=== PATIENT | male | born 1995 | race Caucasian/White ===

== ENCOUNTER 2016-03-21 20:30 | Emergency (ER) | payer OTHER ==
[~2016-03-21] VITALS: Ht 175.3 cm; Wt 74.5 kg
[~2016-03-21 20:30] MED LIST: CIPR500T4 PO; HYDR-3498 PO; IBUP-1542 PO; RANI150T9 PO; ZOF8 PO
[2016-03-21 20:35] VITALS: Ht 175.3 cm; Wt 74.5 kg
== END 2016-03-21 23:17 | disposition left against medical advice (07) ==
LOC: FTE 20:30
DX: Z53.21 Procedure and treatment not carried out due to patient leaving prior to being seen by health care provider (principal)

== ENCOUNTER 2016-06-09 23:04 | Emergency (ER) | payer SELFPAY ==
[~2016-06-09] VITALS: Ht 177.8 cm; Wt 98.8 kg
[2016-06-09 23:06] VITALS: Ht 177.8 cm; Wt 98.8 kg
[2016-06-10] MEDS ORDERED: ACET500C5 PO (04:05)
[2016-06-10] MEDS ORDERED: OMEP20CA16 PO (04:05)
[2016-06-10] MEDS ORDERED: ONDA4TAB14 PO (04:05)
== END 2016-06-09 23:28 | disposition left against medical advice (07) ==
LOC: FTE 23:04
DX: Z53.21 Procedure and treatment not carried out due to patient leaving prior to being seen by health care provider (principal)

== ENCOUNTER 2016-06-09 23:57 | Emergency (ER) | payer SELFPAY ==
[~2016-06-09] VITALS: Ht 172.7 cm; Wt 98.0 kg
[2016-06-10 00:03] VITALS: Ht 172.7 cm; Wt 98.0 kg
[2016-06-10] MEDS ORDERED: SOD CHLORIDE 0.9% 1,000 ML IV STA (01:10)
[2016-06-10] MEDS ORDERED: ONDANSETRON 4 MG INJ IV STA (01:10)
[2016-06-10] MEDS ORDERED: morphine 4 MG/ML VIAL IV STA (01:10)
[2016-06-10] MEDS ORDERED: ACETAMINOPHEN 500 MG TAB PO STA (01:10)
[2016-06-10 01:47] LABS: ADD SCAN DIFF NO
--- NOTE | 2016-06-10 01:47 | ERD ---
ER Documentation Chief Complaint Date/Time DATE: 06/10/16 TIME: 01:46 Chief Complaint MID ABD PAIN TODAY HPI 20-year-old male presents to emergency department for complaint of lower abdominal pain started today, fever or nausea vomiting. Patient is complaining of lower abdominal pain sharp pain, 4/10 scale, accompanied with vomiting and fever. Patient denies any blood in the stool. Patient denies any blood in the vomit. Patient denies any diarrhea or constipation. Patient denies any sick contacts. Patient denies any recent travel. Patient denies hematuria or dysuria. Patient did not take any medications to help with symptoms. ROS All systems reviewed and are negative except as per history of present illness. Medications Home Meds Active Scripts Omeprazole* (Omeprazole*) 20 Mg Capsule.dr, 20 MG PO DAILY, #30 Prov:JACEK BLEVINS NP 06/10/16 Acetaminophen* (Tylophen*) 500 Mg Capsule, 1 CAP PO Q6H Y for PAIN AND OR ELEVATED TEMP, #20 CAP Prov:JACEK BLEVINS NP 06/10/16 Ondansetron (Ondansetron Odt) 4 Mg Tab.rapdis, 4 MG PO Q8 Y for NAUSEA AND/OR VOMITING, #30 TAB Prov:JACEK BLEVINS NP 06/10/16 Ibuprofen* (Ibuprofen*) 600 Mg Tablet, 600 MG PO Q6H Y for PAIN, #30 TAB Prov:ALBERTINA SOTELO PA-C 09/09/15 Hydrocodone Bit-Acetaminophen* ([place]*) 5-325 Mg Tab, 1 TAB PO Q6 Y for PAIN, # 15 TAB Prov:ALBERTINA SOTELO PA-C 09/09/15 Ciprofloxacin Hcl* (Ciprofloxacin Hcl*) 500 Mg Tablet, 500 MG PO BID for 7 Days , TAB Prov:KENY HENDRICKS PA-C 09/30/14 Ondansetron Hcl* (Zofran* ODT) 8 mg -ODT Tab.disper, 8 MG PO Q6 Y for NAUSEA AND /OR VOMITING, #10 TAB Prov:KENY HENDRICKS PA-C 09/30/14 Ranitidine Hcl* (Zantac*) 150 Mg Tablet, 150 MG PO BID Y for PAIN, #20 TAB Prov:KENY HENDRICKS PA-C 09/30/14 Allergies Allergies: Coded Allergies: No Known Allergy (Unverified , 09/09/15) PMhx/Soc Medical and Surgical Hx: pt denies Medical Hx, pt denies Surgical Hx History of Surgery: No Anesthesia Reaction: No Hx Neurological Disorder: No Hx Respiratory Disorders: No Hx Cardiac Disorders: No Hx Psychiatric Problems: No Hx Miscellaneous Medical Probl: No Hx Alcohol Use: No Hx Substance Use: No Hx Tobacco Use: No FmHx Family History: No coronary disease, No diabetes, No other Physical Exam Vitals Vital Signs Date Time Temp Pulse Resp B/P Pulse Ox O2 Delivery O2 Flow Rate FiO2 06/10/16 04:05 97.6 66 20 108/61 100 Room Air 06/10/16 00:03 100.4 82 20 142/80 100 Physical Exam GENERAL: The patient is well developed and appropriate for usual state of health, in no apparent distress. CHEST: Clear to auscultation bilaterally. There are no rales, wheezes or rhonchi. HEART: Regular rate and rhythm. No murmurs, clicks, rubs or gallops. No S3 or S4. ABDOMEN: Soft, nontender and nondistended. Good bowel sounds. No rebound or guarding. No gross peritonitis. No gross organomegaly or masses. No Lynch sign or McBurney point tenderness. BACK: No midline or flank tenderness. EXTREMITIES: Equal pulses bilaterally. There is no peripheral clubbing, cyanosis or edema. No focal swelling or erythema. Full range of motion. Grossly neurovascularly intact. NEURO: Alert and oriented. Cranial nerves 2-12 intact. Motor strength in all 4 extremities with 5/5 strength. Sensation grossly intact. Normal speech and gait. SKIN: There is no apparent rash or petechia. The skin is warm and dry. HEMATOLOGIC AND LYMPHATIC: There is no evidence of excessive bruising or lymphedema. No gross cervical, axillary, or inguinal lymphadenopathy. Result Diagram: 06/10/16 0140 06/10/16 0140 Results 24 hrs Laboratory Tests Test 06/10/16 01:30 06/10/16 01:40 Urine Color YELLOW Urine Clarity CLEAR Urine pH 6.0 Urine Specific [place] 1.025 Urine Ketones TRACE Urine Nitrite NEGATIVE Urine Bilirubin 1+ Urine Ictotest NEGATIVE Urine Urobilinogen 0.2 E.U./dL Urine Leukocyte Esterase NEGATIVE Urine Microscopic RBC NONE SEEN/HPF Urine Microscopic WBC NONE SEEN/HPF Urine Squamous Epithelial Cells RARE Urine Mucus FEW Urine Hemoglobin NEGATIVE Urine Glucose NEGATIVE% Urine Total Protein TRACE White Blood Count 16.210^3/ul Red Blood Count 5.2310^6/ul Hemoglobin 15.4g/dl Hematocrit 44.0% Mean Corpuscular Volume 84.1fl Mean Corpuscular Hemoglobin 29.4pg Mean Corpuscular Hemoglobin Concent 35.0g/dl Red Cell Distribution Width 12.8% Platelet Count 55224^3/UL Mean Platelet Volume 11.0fl Neutrophils % 86.9% Lymphocytes % 5.5% Monocytes % 7.0% Eosinophils % 0.1% Basophils % 0.2% Nucleated Red Blood Cells % 0.0/100WBC Neutrophils # 14.110^3/ul Lymphocytes # 0.910^3/ul Monocytes # 1.110^3/ul Eosinophils # 0.010^3/ul Basophils # 0.010^3/ul Nucleated Red Blood Cells # 0.010^3/ul Sodium Level 141mmol/L Potassium Level 3.9mmol/L Chloride Level 102mmol/L Carbon Dioxide Level 26mmol/L Anion Gap 17 Blood Urea Nitrogen 16mg/dl Creatinine 0.83mg/dl Glucose Level 111mg/dl Calcium Level 9.9mg/dl Total Bilirubin 0.9mg/dl Direct Bilirubin 0.00mg/dl Indirect Bilirubin 0.9mg/dl Aspartate Amino Transf (AST/SGOT) 30IU/L Alanine Aminotransferase (ALT/SGPT) 75IU/L Alkaline Phosphatase 104IU/L Total Protein 7.8g/dl Albumin 4.5g/dl Globulin 3.30g/dl Albumin/Globulin Ratio 1.36 Lipase 19U/L Current Medications Medications (Trade) Dose Ordered Sig/Savage Route PRN Reason Start Time Stop Time Status Last Admin Dose Admin Sodium Chloride (NS) 1,000 ml @ 1,000 mls/hr Q1H STAT IV 06/10/16 01:10 06/10/16 02:09 DC 06/10/16 01:34 Morphine Sulfate (morphine) 4 mg ONCE STAT IV 06/10/16 01:10 06/10/16 01:11 DC 06/10/16 01:34 Ondansetron HCl (Zofran Inj) 4 mg ONCE STAT IV 06/10/16 01:10 06/10/16 01:11 DC 06/10/16 01:34 Acetaminophen (Tylenol Tab) 500 mg ONCE STAT PO 06/10/16 01:10 06/10/16 01:11 DC 06/10/16 01:34 Patient was given medication for pain here in emergency department, after treatment, patient verbalized feeling much better. Patient's pain is improved. Patient was given Zofran here in the emergency department. After treatment, patient was able to tolerate po fluids here in the emergency department without any vomiting. There is no signs and symptoms of dehydration. PROCEDURE: CT ABDOMEN/PELVIS WITHOUT CONTRAST CLINICAL INDICATION: 20-year-old male with abdominal pain. TECHNIQUE: The study was performed utilizing a GE [employer] VCT 64-slice CT scanner. Direct axial sections were obtained through the abdomen and pelvis without the use of intravenous contrast material. Sagittal and coronal reformations were obtained. One or more of the following dose reduction techniques were utilized: automated exposure control, adjustment of the mA and/ or kV according to patient's size or use of iterative reconstruction technique. The images were reviewed on a PACS workstation. CTD/vol = 7.6 mGy; Total Exam DLP = 484.4 mGy-cm. COMPARISON: None. FINDINGS: There is trace left basilar subsegmental atelectasis. There is no evidence for significant pleural effusion. The liver has a normal size and contour. There is diffuse decreased density throughout the liver consistent with fatty infiltration without focal areas of abnormal density. No intrahepatic nor extrahepatic biliary ductal dilatation is seen. The gallbladder demonstrates no wall thickening nor pericholecystic fluid. No biliary stones are evident. The pancreas is without areas of abnormal attenuation. The spleen is identified and has a normal size without abnormal density. The adrenal glands are unremarkable. The kidneys are without abnormal density. No hydroureteronephrosis nor nephroureterolithiasis is evident. The urinary bladder contains small volume of urine. There is no evidence for bowel obstruction. The appendix is visualized and is without abnormal thickening or surrounding inflammatory reaction. There is no significant free fluid. The aortoiliac vessels are without aneurysmal dilatation. The osseous structures are intact. IMPRESSION: 1. Diffuse fatty infiltration of the liver. 2. No CT evidence for appendicitis. .Keanu Schwartz MD, MD Date Time Electronically viewed and signed by .Keanu Schwartz MD, on 06/10/2016 02:59 .M/ CC: JACEK BLEVINS BENDER MACHINE OPERATOR Microbiology INFLUENZA A & B BY EIA Final INFLU A&B BY EIA INFLUENZA A NEGATIVE (Ref Range Neg) INFLUENZA B NEGATIVE (Ref Range Neg) Procedures/MDM Medical Decision Making: Patient's abdominal pain and vomiting nonspecific, patient also had a fever, most likely viral in origin. No symptoms of dehydration, patient abdominal pain has improved and resolved after treatment here in emergency department. Patient's fever is controlled. There is low suspicion for abdominal emergencies at this time. Patients abdominal exam is normal at this time. Patients radiology exam does not show any abdominal emergencies at this time. There is low suspicion for appendicitis, cholecystitis , abdominal aortic aneurysms or peritonitis at this time. There is low suspicion for sepsis. Patient appears well and is hemodynamically stable. Disposition: Home. Condition: Stable Prescription Zofran, Tylenol, omeprazole Instructions: Patient is advised to take medications as prescribed. Patient is advised to rest, increase fluid intake and do brat diet for next 1-2 days and progress as tolerated. Patient is advised that if symptoms are worse, severe abdominal pain, uncontrolled vomiting, high fever, severe flank pain, worst signs and symptoms, to return to the emergency department immediately. Otherwise, patient can follow up with primary care doctor in 5-7 days. Departure Diagnosis: Primary Impression: Abdominal pain Abdominal location: lower abdomen, unspecified Qualified Code: R10.30 - Lower abdominal pain Additional Impression: Vomiting Vomiting type: unspecified Vomiting Intractability: unspecified Nausea presence: unspecified Qualified Code: R11.10 - Vomiting, intractability of vomiting not specified, presence of nausea not specified, unspecified vomiting type Condition: Stable Patient Instructions: Abdominal Pain, Vomiting (6Y-Adult) Additional Instructions: Patient is advised to take medications as prescribed. Patient is advised to rest , increase fluid intake and do brat diet for next 1-2 days and progress as tolerated. Patient is advised that if symptoms are worse, severe abdominal pain , uncontrolled vomiting, high fever, severe flank pain, worst signs and symptoms , to return to the emergency department immediately. Otherwise, patient can follow up with primary care doctor in 5-7 days. JACEK BLEVINS NP Jun 10, 2016 01:47
[2016-06-10 01:49] LABS: BASOPHILS % 0.2 % (0.0-2.0); EOSINOPHILS % 0.1 % (0.0-7.0); HEMOGLOBIN 15.4 g/dl (14.0-18.0); LYMPHOCYTES # 0.9 10^3/ul (0.8-2.9); LYMPHOCYTES % 5.5 % (18.0-55.0); MEAN CORPUSCULAR HEMOGLOBIN 29.4 pg (29.0-33.0); MEAN CORPUSCULAR VOLUME 84.1 fl (72.0-104.0); MONOCYTE # 1.1 10^3/ul (0.3-0.9); NEUTROPHIL # 14.1 10^3/ul (1.6-7.5); NEUTROPHILS % 86.9 % (30.0-74.0); PLATELET COUNT 203 10^3/UL (140-415); RED BLOOD COUNT 5.23 10^6/ul (4.70-6.10); RED CELL DISTRIBUTION WIDTH 12.8 % (11.5-14.5); WHITE BLOOD COUNT 16.2 10^3/ul (4.8-10.8)
[2016-06-10 01:51] LABS: ADD UMIC YES; URINE BILIRUBIN (Dip) 1+ (NEGATIVE); URINE BLOOD (Dip) NEGATIVE (NEGATIVE); URINE COLOR YELLOW (YELLOW); URINE GLUCOSE (Dip) NEGATIVE (NEGATIVE); URINE KETONES (Dip) TRACE (NEGATIVE); URINE LEUKOCYTE ESTERASE (Dip) NEGATIVE (NEGATIVE); URINE NITRITE (Dip) NEGATIVE (NEGATIVE); URINE TOTAL PROTEIN (Dip) TRACE (NEGATIVE); URINE UROBILINOGEN (Dip) 0.2 E.U./dL (0.1-1.0)
[2016-06-10 02:02] LABS: ALBUMIN 4.5 g/dl (3.3-4.9)
[2016-06-10 02:03] LABS: POTASSIUM 3.9 mmol/L (3.5-5.1)
[2016-06-10 02:05] LABS: ALBUMIN/GLOBULIN RATIO 1.36; BILIRUBIN,INDIRECT 0.9 mg/dl (0-1.1); BILIRUBIN,TOTAL 0.9 mg/dl (0.2-1.3); CREATININE 0.83 mg/dl (0.61-1.24); TOTAL PROTEIN 7.8 g/dl (6.1-8.1)
[2016-06-10 02:06] LABS: CALCIUM 9.9 mg/dl (8.4-10.2)
[2016-06-10 02:10] LABS: ICTOTEST NEGATIVE (NEGATIVE); MUCUS,URINE FEW; SQUAMOUS EPITHELIAL CELL,UR RARE; URINE RBCS NONE SEEN /HPF (0)
--- NOTE | 2016-06-10 03:00 | RADRPT ---
PROCEDURE: CT ABDOMEN/PELVIS WITHOUT CONTRAST CLINICAL INDICATION: 20-year-old male with abdominal pain. TECHNIQUE: The study was performed utilizing a GE [employer] VCT 64-slice CT scanner. Direct axia l sections were obtained through the abdomen and pelvis without the use of intravenous contrast mate rial. Sagittal and coronal reformations were obtained. One or more of the following dose reduction t echniques were utilized: automated exposure control, adjustment of the mA and/or kV according to pat ient's size or use of iterative reconstruction technique. The images were reviewed on a PACS workst at[employer]. CTD/vol = 7.6 mGy; Total Exam DLP = 484.4 mGy-cm. COMPARISON: None. FINDINGS: There is trace left basilar subsegmental atelectasis. There is no evidence for significant pleural effusion. The liver has a normal size and contour. There is diffuse decreased density throughout t he liver consistent with fatty infiltration without focal areas of abnormal density. No intrahepatic nor extrahepatic biliary ductal dilatation is seen. The gallbladder demonstrates no wall thickening nor pericholecystic fluid. No biliary stones are evident. The pancreas is without areas of abnormal attenuation. The spleen is identified and has a normal size without abnormal density. The adrenal glands are unremarkable. The kidneys are without abnormal density. No hydroureteronephrosis nor neph roureterolithiasis is evident. The urinary bladder contains small volume of urine. There is no evide nce for bowel obstruction. The appendix is visualized and is without abnormal thickening or surroun ding inflammatory reaction. There is no significant free fluid. The aortoiliac vessels are without aneurysmal dilatation. The osseous structures are intact. IMPRESSION: 1. Diffuse fatty infiltration of the liver. 2. No CT evidence for appendicitis. .Keanu Schwartz MD, MD Date Time Electronically viewed and signed by .Keanu Schwartz MD, MD on 06/10/2016 02:59 .M/
[2016-06-10 04:05] VITALS: BP 108/61; PULSE 66; RESP 20; TEMP 97.6
[2016-06-10] MEDS ORDERED: ACET500C5 PO (04:05)
[2016-06-10] MEDS ORDERED: ONDA4TAB14 PO (04:05)
[2016-06-10] MEDS ORDERED: OMEP20CA16 PO (04:05)
== END 2016-06-10 04:10 | disposition home or self-care (01) ==
LOC: FTE 23:57
DX: R10.30 Lower abdominal pain, unspecified (principal); R11.10 Vomiting, unspecified
CPT/HCPCS: 36415; 74176; 80053; 81001; 81003; 83690; 85025; 87400; 96374; 96375; 99285; J2270; J2405; J7030

== ENCOUNTER 2017-01-30 05:06 | Emergency (ER) | payer OTHER ==
[~2017-01-30] VITALS: Ht 167.6 cm; Wt 80.0 kg
[~2017-01-30 05:06] MED LIST changes: +ACET500C5 PO; +OMEP20CA16 PO; +ONDA4TAB14 PO
[2017-01-30 05:10] VITALS: Ht 167.6 cm; Wt 80.0 kg
[2017-01-30] MEDS ORDERED: ONDANSETRON 4 MG INJ IV STA (05:25)
[2017-01-30] MEDS ORDERED: morphine 4 MG/ML VIAL IV STA (05:25)
[2017-01-30] MEDS ORDERED: SOD CHLORIDE 0.9% 1,000 ML IV STA (05:25)
[2017-01-30 05:52] LABS: BASOPHIL # 0.1 10^3/ul (0.0-0.1); BASOPHILS % 0.5 % (0.0-2.0); EOSINOPHILS # 0.2 10^3/ul (0.0-0.5); HEMATOCRIT 48.1 % (42.0-52.0); HEMOGLOBIN 16.7 g/dl (14.0-18.0); LYMPHOCYTES # 3.5 10^3/ul (0.8-2.9); LYMPHOCYTES % 22.7 % (15.0-51.0); MEAN CORPUSCULAR HEMOGLOBIN 29.2 pg (29.0-33.0); MEAN CORPUSCULAR HGB CONC 34.7 g/dl (32.0-37.0); MEAN CORPUSCULAR VOLUME 84.1 fl (82.0-101.0); MEAN PLATELET VOLUME 10.7 fl (7.4-10.4); MONOCYTE # 1.1 10^3/ul (0.3-0.9); MONOCYTES % 7.2 % (0.0-11.0); NEUTROPHIL # 10.4 10^3/ul (1.6-7.5); NEUTROPHILS % 68.3 % (39.0-77.0); PLATELET COUNT 246 10^3/UL (140-415); RED BLOOD COUNT 5.72 10^6/ul (4.70-6.10); RED CELL DISTRIBUTION WIDTH 12.6 % (11.5-14.5); WHITE BLOOD COUNT 15.3 10^3/ul (4.8-10.8)
[2017-01-30 06:13] LABS: ALBUMIN 4.9 g/dl (3.3-4.9); ALBUMIN/GLOBULIN RATIO 1.25; BILIRUBIN,INDIRECT 0.9 mg/dl (0-1.1); BILIRUBIN,TOTAL 0.9 mg/dl (0.2-1.3); CALCIUM 10.6 mg/dl (8.4-10.2); CREATININE 0.87 mg/dl (0.61-1.24); POTASSIUM 4.1 mmol/L (3.5-5.1); TOTAL PROTEIN 8.8 g/dl (6.1-8.1)
[2017-01-30] MEDS ORDERED: HYDROmorphONE 1 MG/ML SYG IV STA ×2 (06:22→06:24)
--- NOTE | 2017-01-30 07:59 | RADRPT ---
PROCEDURE: ULTRASOUND LIMITED ABDOMEN CLINICAL INDICATION: 20-year-old male with right-sided abdominal pain. TECHNIQUE: Multiple sonographic of the right upper quadrant of the abdomen were obtained. The imag es were reviewed on a PACS workstation. COMPARISON: CT abdomen/pelvis June 10, 2016. FINDINGS: The proximal inferior vena cava and aorta were not well visualized secondary to overlying bowel gas. The pancreas is partially visualized and is otherwise without focal abnormal echogenicity. The liver displays diffuse increased echogenicity consistent with fatty infiltration. The liver micaela ures see 0.2 cm in length. No evidence of intrahepatic biliary ductal dilatation is seen. The isac l and hepatic veins are unremarkable. The gallbladder demonstrates no wall thickening, sludge, nor stones. No pericholecystic fluid is see n. The common bile duct measures 3.4 mm and is not dilated. The right kidney displays normal echogenicity. The right kidney measures 9.8 cm in length. No caliec tasis or hydronephrosis is seen. No free fluid is seen. IMPRESSION: Hepatic steatosis. .Keanu Schwartz MD, MD Date Time Electronically viewed and signed by .Keanu Schwartz MD, on 01/30/2017 07:58 .M/
[2017-01-30] MEDS ORDERED: ONDA4TAB14 PO (08:05)
[2017-01-30 08:26] VITALS: BP 94/57; PULSE 86; RESP 18
--- NOTE | 2017-01-30 08:41 | ERD ---
ER Documentation Chief Complaint Chief Complaint bib self, cc: abdominal pain x 6 hours, hx of stomach ulcers HPI Patient is a 21-year-old male with chronic abdominal pain who presents with abdominal pain. He said that he woke up this morning with diffuse abdominal pain. He said that he gets this every month and it started 3 years ago. He tried hydrocodone this morning. Upon review of old medical records the patient has multiple visits to the ER since 2014. He does have a primary doctor but he does not have a pain management doctor. He had a CT scan performed on May 2016 which was negative. His last ultrasound was done in 2014 here. He said that he had another outpatient CT scan done 2 weeks ago but does not know the results. ROS All systems reviewed and are negative except as per history of present illness. Medications Home Meds Active Scripts Ondansetron (Ondansetron Odt) 4 Mg Tab.rapdis, 4 MG PO Q6H Y for NAUSEA AND/OR VOMITING, #30 TAB Prov:JUSTYNA SWEET MD 01/30/17 Omeprazole* (Omeprazole*) 20 Mg Capsule.dr, 20 MG PO DAILY, #30 Prov:JACEK BLEVINS NP 06/10/16 Acetaminophen* (Tylophen*) 500 Mg Capsule, 1 CAP PO Q6H Y for PAIN AND OR ELEVATED TEMP, #20 CAP Prov:JACEK BLEVINS NP 06/10/16 Ondansetron (Ondansetron Odt) 4 Mg Tab.rapdis, 4 MG PO Q8 Y for NAUSEA AND/OR VOMITING, #30 TAB Prov:JACEK BLEVINS NP 06/10/16 Ibuprofen* (Ibuprofen*) 600 Mg Tablet, 600 MG PO Q6H Y for PAIN, #30 TAB Prov:ALBERTINA SOTELO PA-C 09/09/15 Hydrocodone Bit-Acetaminophen* ([place]*) 5-325 Mg Tab, 1 TAB PO Q6 Y for PAIN, # 15 TAB Prov:ALBERTINA SOTELO PA-C 09/09/15 Ciprofloxacin Hcl* (Ciprofloxacin Hcl*) 500 Mg Tablet, 500 MG PO BID for 7 Days , TAB Prov:KENY HENDRICKS PA-C 09/30/14 Ondansetron Hcl* (Zofran* ODT) 8 mg -ODT Tab.disper, 8 MG PO Q6 Y for NAUSEA AND /OR VOMITING, #10 TAB Prov:KENY HENDRICKS PA-C 09/30/14 Ranitidine Hcl* (Zantac*) 150 Mg Tablet, 150 MG PO BID Y for PAIN, #20 TAB Prov:KENY HENDRICKS PA-C 09/30/14 Allergies Allergies: Coded Allergies: No Known Allergy (Unverified , 09/09/15) PMhx/Soc Chronic abdominal pain History of Surgery: No Anesthesia Reaction: No Hx Neurological Disorder: No Hx Respiratory Disorders: No Hx Cardiac Disorders: No Hx Psychiatric Problems: No Hx Miscellaneous Medical Probl: No Hx Alcohol Use: No Hx Substance Use: No Hx Tobacco Use: No FmHx Family History: No diabetes Physical Exam Vitals Vital Signs Date Time Temp Pulse Resp B/P Pulse Ox O2 Delivery O2 Flow Rate FiO2 01/30/17 08:26 86 18 94/57 100 Room Air 01/30/17 06:39 93 16 108/67 100 Room Air 01/30/17 05:10 98.6 82 18 101/61 100 Physical Exam Const: Moderate distress secondary to pain Head: Atraumatic Eyes: Normal Conjunctiva ENT: Normal External Ears, Nose and Mouth. Neck: Full range of motion..~ No meningismus. Resp: Clear to auscultation bilaterally Cardio: Regular rate and rhythm, no murmurs Abd: Diffuse tenderness to palpation without rebound or guarding Skin: No petechiae or rashes Back: No midline or flank tenderness Ext: No cyanosis, or edema Neur: Awake and alert Psych: Normal Mood and Affect Result Diagram: 01/30/1753201/30/17 0533 Results 24 hrs Laboratory Tests Test 01/30/17 05:33 White Blood Count 15.310^3/ul Red Blood Count 5.7210^6/ul Hemoglobin 16.7g/dl Hematocrit 48.1% Mean Corpuscular Volume 84.1fl Mean Corpuscular Hemoglobin 29.2pg Mean Corpuscular Hemoglobin Concent 34.7g/dl Red Cell Distribution Width 12.6% Platelet Count 37902^3/UL Mean Platelet Volume 10.7fl Neutrophils % 68.3% Lymphocytes % 22.7% Monocytes % 7.2% Eosinophils % 1.0% Basophils % 0.5% Nucleated Red Blood Cells % 0.0/100WBC Neutrophils # 10.410^3/ul Lymphocytes # 3.510^3/ul Monocytes # 1.110^3/ul Eosinophils # 0.210^3/ul Basophils # 0.110^3/ul Nucleated Red Blood Cells # 0.010^3/ul Sodium Level 142mmol/L Potassium Level 4.1mmol/L Chloride Level 103mmol/L Carbon Dioxide Level 25mmol/L Anion Gap 18 Blood Urea Nitrogen 17mg/dl Creatinine 0.87mg/dl Glucose Level 110mg/dl Calcium Level 10.6mg/dl Total Bilirubin 0.9mg/dl Direct Bilirubin 0.00mg/dl Indirect Bilirubin 0.9mg/dl Aspartate Amino Transf (AST/SGOT) 38IU/L Alanine Aminotransferase (ALT/SGPT) 107IU/L Alkaline Phosphatase 108IU/L Total Protein 8.8g/dl Albumin 4.9g/dl Globulin 3.90g/dl Albumin/Globulin Ratio 1.25 Lipase 34U/L Current Medications Medications (Trade) Dose Ordered Sig/Savage Route PRN Reason Start Time Stop Time Status Last Admin Dose Admin Sodium Chloride (NS) 1,000 ml @ 1,000 mls/hr Q1H STAT IV 01/30/17 05:25 01/30/17 06:24 DC 01/30/17 05:38 Morphine Sulfate (morphine) 4 mg ONCE STAT IV 01/30/17 05:25 01/30/17 05:27 DC 01/30/17 05:38 Ondansetron HCl (Zofran Inj) 4 mg ONCE STAT IV 01/30/17 05:25 01/30/17 05:27 DC 01/30/17 05:38 Hydromorphone HCl (Dilaudid) 1 mg ONCE STAT IV 01/30/17 06:22 01/30/17 06:23 DC 01/30/17 06:32 Hydromorphone HCl (Dilaudid) 1 mg ONCE STAT IV 01/30/17 06:24 01/30/17 06:30 DC Procedures/MDM Ultrasound negative for cholecystitis per radiology. Smoking Cessation Therapy: Pt. was lectured for greater than 3 minutes on the health risks of continued smoking and the benefits of cessation. Patient is a 21-year-old male with chronic abdominal pain who presents with abdominal pain. The patient has had some nausea but no vomiting or diarrhea. The patient was given morphine and Dilaudid as well as Zofran. He was given fluids. The patient will need to follow-up with his primary doctor within 24 hours but I also recommended pain management and have given him information for Dr. Giang. The patient has basically normal laboratory studies. I doubt appendicitis, cholecystitis, pancreatitis, or bowel obstruction. I have given him a copy of the laboratory studies and ultrasound report prior to discharge. He can return for any worsening symptoms. I believe the risks of doing another CT scan outweigh the benefits as he is a young male and has had multiple CT scans in the past. Departure Diagnosis: Primary Impression: Chronic pain Chronic pain type: other chronic pain Qualified Code: G89.29 - Other chronic pain Additional Impression: Abdominal pain Abdominal location: generalized Qualified Code: R10.84 - Generalized abdominal pain Condition: Fair Patient Instructions: Abdominal Pain Referrals: CAROLA GIANG Additional Instructions: Call your primary care doctor TOMORROW for an appointment during the next 1-2 days.See the doctor sooner or return here if your condition worsens before your appointment time. JUSTYNA SWEET MD Jan 30, 2017 08:41
== END 2017-01-30 08:43 | disposition home or self-care (01) ==
LOC: E/R 05:06
DX: G89.29 Other chronic pain (principal); R10.84 Generalized abdominal pain
CPT/HCPCS: 36415; 76705; 80053; 83690; 85025; 96374; 96375; J1170; J2270; J2405; J7030; Z7502

== ENCOUNTER 2017-08-11 12:23 | Day surgery (SDC) | END 2017-08-11 16:25 | disposition home or self-care (01) ==

== ENCOUNTER 2017-10-12 15:17 | Emergency (ER) | END 2017-10-12 17:16 | disposition home or self-care (01) ==

== ENCOUNTER 2018-05-16 19:46 | Inpatient (IN) | payer OTHER ==
[~2018-05-16] VITALS: Ht 170.2 cm; Wt 68.6 kg
[2018-05-16 01:15] VITALS: BP 108/71; PULSE 92; RESP 17
[~2018-05-16 19:46] MED LIST changes: -ACET500C5 PO; +BEN25 PO; -CIPR500T4 PO; +CLIN300C10 PO; -HYDR-3498 PO; -OMEP20CA16 PO; -ONDA4TAB14 PO; -RANI150T9 PO; -ZOF8 PO
[2018-05-16] MEDS ORDERED: ONDANSETRON 4 MG INJ IV STA (19:57)
[2018-05-16] MEDS ORDERED: SOD CHLORIDE 0.9% 1,000 ML IV STA (19:57)
[2018-05-16] MEDS ORDERED: HYDROmorphONE 1 MG/ML SYG IV STA (19:57)
--- NOTE | 2018-05-16 20:06 | ERD ---
ER Documentation Chief Complaint Chief Complaint AP HPI The patient is a 22-year-old male, presenting to the ER because of abdominal pain today, it began this am, in the evening. He had similar symptoms previously, the abdominal pain is diffuse but more tender at the right lower quadrant, associated with vomiting, denies fever, chills, neck pain, chest pain, dyspnea, diarrhea, constipation, dysuria. He does smoke, denies drinking, smoke marijuana Past medical history: Gastritis Past surgical history: None ROS All systems reviewed and are negative except as per history of present illness. Medications Home Meds Active Scripts Diphenhydramine Hcl* (Benadryl*) 25 Mg Cap, 25 MG PO Q6, #30 CAP Prov:YRAY,ORIANA C 10/12/17 Ibuprofen* (Ibuprofen*) 600 Mg Tablet, 600 MG PO Q6 for 5 Days, TAB Prov:YARYVILMAORIANA C 10/12/17 Clindamycin Hcl* (Clindamycin Hcl*) 300 Mg Capsule, 300 MG PO TID for 10 Days, CAP Prov:YARYORIANA C 10/12/17 Reported Medications [none] No Conflict Check 08/11/17 Allergies Allergies: Coded Allergies: No Known Allergy (Unverified , 08/11/17) PMhx/Soc History of Surgery: Yes (rectal cyst) Anesthesia Reaction: No Hx Neurological Disorder: No Hx Respiratory Disorders: No Hx Cardiac Disorders: No Hx Psychiatric Problems: No Hx Miscellaneous Medical Probl: No Hx Alcohol Use: No Hx Substance Use: No Hx Tobacco Use: Yes Physical Exam Vitals Vital Signs Date Temp Pulse Resp B/P (MAP) Pulse Ox O2 O2 Flow FiO2 Time Delivery Rate 05/16/18 95 26 91/57 (68) 95 Room Air 22:54 05/16/18 97.3 96 22 126/58 100 19:53 (80) 05/16/18 97.3 96 22 126/58 100 19:51 (80) Physical Exam Const: No acute distress. Head: Atraumatic. Eyes: Normal Conjunctiva. ENT: Normal External Ears, Nose and Mouth. Neck: Full range of motion. No meningismus. Resp: Clear to auscultation bilaterally. Cardio: Regular rate and rhythm. Abd: Soft, non distended, normal bowel sounds, diffuse and mild abdominal tenderness, more tenderness at the right lower quadrant, no rigidity/rebound/CVA tenderness Skin: No petechiae or rashes. Back: No midline or flank tenderness. Ext: No cyanosis, or edema. Neur: Awake and alert. No focal deficit Psych: Normal Mood and Affect. Result Diagram: 05/16/18200105/16/182001 Results 24 hrs Laboratory Tests Test 05/16/18 20:02 05/16/18 20:04 White Blood Count 17.3 10^3/ul Red Blood Count 5.38 10^6/ul Hemoglobin 15.6 g/dl Hematocrit 44.7 % Mean Corpuscular Volume 83.1 fl Mean Corpuscular Hemoglobin 29.0 pg Mean Corpuscular Hemoglobin Concent 34.9 g/dl Red Cell Distribution Width 13.0 % Platelet Count 225 10^3/UL Mean Platelet Volume 10.6 fl Immature Granulocytes % 0.300 % Neutrophils % 87.0 % Lymphocytes % 6.7 % Monocytes % 5.7 % Eosinophils % 0.1 % Basophils % 0.2 % Nucleated Red Blood Cells % 0.0 /100WBC Immature Granulocytes # 0.060 10^3/ul Neutrophils # 15.0 10^3/ul Lymphocytes # 1.2 10^3/ul Monocytes # 1.0 10^3/ul Eosinophils # 0.0 10^3/ul Basophils # 0.0 10^3/ul Nucleated Red Blood Cells # 0.0 10^3/ul Sodium Level 140 mmol/L Potassium Level 4.2 mmol/L Chloride Level 104 mmol/L Carbon Dioxide Level 23 mmol/L Anion Gap 13 Blood Urea Nitrogen 15 mg/dl Creatinine 0.73 mg/dl Est Glomerular Filtrat Rate mL/min > 60 mL/min Glucose Level 102 mg/dl Calcium Level 10.4 mg/dl Total Bilirubin 0.9 mg/dl Direct Bilirubin 0.00 mg/dl Indirect Bilirubin 0.9 mg/dl Aspartate Amino Transf (AST/SGOT) 26 IU/L Alanine Aminotransferase (ALT/SGPT) 37 IU/L Alkaline Phosphatase 93 IU/L Total Protein 8.7 g/dl Albumin 5.0 g/dl Globulin 3.70 g/dl Albumin/Globulin Ratio 1.35 Urine Color YELLOW Urine Clarity CLEAR Urine pH 5.0 Urine Specific [place] 1.019 Urine Ketones 1+ mg/dL Urine Nitrite NEGATIVE mg/dL Urine Bilirubin NEGATIVE mg/dL Urine Urobilinogen NEGATIVE mg/dL Urine Leukocyte Esterase NEGATIVE She[place]/ul Urine Hemoglobin NEGATIVE mg/dL Urine Glucose NEGATIVE mg/dL Urine Total Protein NEGATIVE mg/dl Current Medications Medications Dose Sig/Savage Start Time Status Last (Trade) Ordered Route PRN Stop Time Admin Dose Reason Admin Sodium 1,000 ml @ Q1H STAT 05/16/18 DC 05/16/18 Chloride 1,000 mls/hr IV 19:57 05/16/18 20:02 20:56 1 mg ONCE STAT 05/16/18 DC 05/16/18 Hydromorphone IV 19:57 05/16/18 20:02 HCl 19:58 (Dilaudid) Ondansetron 4 mg ONCE STAT 05/16/18 DC 05/16/18 HCl (Zofran IV 19:57 05/16/18 20:02 Inj) 19:58 Sodium 1,000 ml @ Q10H IV 05/16/18 05/16/18 Chloride 100 mls/hr 22:06 23:40 IV Flush 3 ml PER 05/16/18 (NS 3 ml) PROTOCOL IV 22:30 Ondansetron 4 mg Q6H PRN 05/16/18 HCl (Zofran IV 22:30 Inj) NAUSEA/VOMITI NG 650 mg Q6H PRN 05/16/18 Acetaminophen PO .PAIN 1-3 22:30 (Tylenol OR TEMP Tab) Morphine 2 mg Q4H PRN 05/16/18 05/16/18 Sulfate IV .SEVERE 22:30 23:19 (morphine) PAIN 7-10 Famotidine 20 mg Q12 IV 05/17/18 (Pepcid Iv) 09:00 Enoxaparin 30 mg DAILY SC 05/17/18 Sodium 09:00 (Lovenox) Procedures/[place] [id number] Radiology Main Line: [phone] DIAGNOSTIC IMAGING REPORT Patient: THANH LAND : 1995 Age: 22 Sex: M MR #: [id number] DOS: 05/16/181956 Ordering MD: PURNIMA CASTANO DO Location: E/R Room/Bed: PROCEDURE: CT Abdomen and Pelvis without contrast. CLINICAL INDICATION: Abdominal pain TECHNIQUE: CT scan of the abdomen and pelvis without contrast was performed on a multidetector high-resolution CT scanner. The patient was scanned without intravenous contrast. Coronal and sagittal reformatted images were obtained from the axial source images. Images were reviewed on a high-resolution PACS workstation. The total exam CTDI equals 6.65 mGy and the total exam DLP equals 383.69 mGy-cm. One or more the following dose reduction techniques were utilized: Automated exposure control, adjustment of the mA and / or kV according to patient's size, or use of iterative reconstruction technique. DICOM images are available. COMPARISON: CT ABDOMEN 04/05/2018 FINDINGS: The lung bases are clear. No pneumoperitoneum is seen. Minimal hepatic steatosis. The oblique length of the spleen equals 13.4 cm suggestive of mild splenomegaly with the length of the spleen increased compared to the previous study. No abnormalities seen in the gallbladder, pancreas, adrenals or kidneys. No biliary dilatation is seen. The stomach is not distended. No abdominal aortic aneurysm is seen. Very small umbilical hernia containing fat only again seen. No renal or ureteral stone is seen. No abnormalities seen in the bladder or reproductive organs. No ascites is seen. No definite abnormalities seen in the colon. There is an unremarkable appendix. No significantly dilated small bowel loops are seen. Multiple mildly prominent lymph nodes are seen in the central mesentery appearing since previous study which could be secondary to mesenteric adenitis. No osseous abnormalities seen. IMPRESSION: Minimal hepatic steatosis. The oblique length of the spleen equals 13.4 cm suggestive of mild splenomegaly with the length of the spleen increased compared to the previous study. Multiple mildly prominent lymph nodes are seen in the central mesentery appearing since previous study which could be secondary to mesenteric adenitis. Please see above. RPTAT: HJES .Abdiel Hawkins MD, MD Date Time Electronically viewed and signed by .Abdiel Hawkins MD, on 05/16/2018 20:48 .S/ CC: PURNIMA CASTANO DO [id number] MEDICAL MAKING DECISION: The patient is a 22-year-old male, presenting with acute right lower, abdominal pain with acute leukocytosis, suspected for acute appendicitis. He was treated with 1 L normal saline, direct bili 1 mg IV for pain, Zofran 4 mg IV for nausea with good response The differential diagnoses considered include but are not limited to mesenteric adenitis, cholelithiasis, cholecystitis, choledocholithiasis, cholangitis, pancreatitis, hepatitis, gastritis, peptic ulcer disease, gastric ulcer, appendicitis, cystitis, diverticulitis, partial small bowel obstruction. Consultation: I discussed the patient with the on-call general surgeon Dr. Gutierrez at 9:40 PM, who was made aware of the lab, the treatment, the patient condition. He accepted the patient Departure Diagnosis: Primary Impression: Abdominal pain Additional Impression: Mesenteric adenitis Condition: Stable Comments I discussed the findings with the patient. I discussed the patient with his physician Dr. Kirkland at 9:50 PM. who was made aware of the lab, the treatment, the patient condition. The patient is admitted to [facility] Disclaimer: Inadvertent spelling and grammatical errors are likely due to EHR/dictation software use and do not reflect on the overall quality of patient care. Also, please note that the electronic time recorded on this note does not necessarily reflect the actual time of the patient encounter. KACY DAO MD May 16, 2018 20:06
[2018-05-16] MEDS ORDERED: ACETAMINOPHEN 325 MG TAB PO PRN (22:30)
[2018-05-16] MEDS ORDERED: NACL 0.9% 3 ML SYG IV SCH (22:30)
[2018-05-16] MEDS ORDERED: ONDANSETRON 4 MG INJ IV PRN (22:30)
[2018-05-16] MEDS: morphine 2 MG INJ IV PRN (23:19)
[2018-05-16] MEDS: SOD CHLORIDE 0.9% 1,000 ML IV SCH (23:40)
[2018-05-17 01:32] VITALS: Ht 170.2 cm; Wt 68.6 kg
--- NOTE | 2018-05-17 02:41 | CONS ---
Assessment/Plan Assessment/Plan Hospital Course (Demo Recall) Right lower quadrant abdominal pain recurrent episode chronic intermittent etiology unclear mild splenomegaly doubt appendicitis. Question possible lymphoma? Leukocytosis without unknown etiology. Plan monitor patient overnight IV fluids IV antibiotics. No recommendations for surgery at this time Consultation Date/Type/Reason Admit Date/Time May 16, 2018 at 22:23 Date of Consultation: May 17, 2018 Type of Consult General surgery consult Reason for Consultation Abdominal pain Requesting Provider: HALI AMANDA Date/Time of Note DATE: 05/17/18 TIME: 02:37 Hx of Present Illness Patient 22-year-old male who presented with worsening right-sided abdominal pain. Patient states that he has had this pain in the past and a few months ago was at [facility] but was told that everything was okay and discharged home. He describes the pain as in the right lower quadrant with tenderness and cramping. He denies any other past medical history past surgical history Past Medical History Home Meds Discontinued Reported Medications [none] No Conflict Check 08/11/17 Discontinued Scripts Diphenhydramine Hcl* (Benadryl*) 25 Mg Cap, 25 MG PO Q6, #30 CAP Prov:ORIANA PRINGLE 10/12/17 Ibuprofen* (Ibuprofen*) 600 Mg Tablet, 600 MG PO Q6 for 5 Days, TAB Prov:ORIANA PRINGLE 10/12/17 Clindamycin Hcl* (Clindamycin Hcl*) 300 Mg Capsule, 300 MG PO TID for 10 Days, CAP Prov:ORIANA PRINGLE 10/12/17 Medications Current Medications Sodium Chloride 1,000 ml @ 100 mls/hr Q10H IV Last administered on 05/16/18at 23:40; Admin Dose 100 MLS/HR; Start 05/16/18 at 22:06 IV Flush (NS 3 ml) 3 ml PER PROTOCOL IV ; Start 05/16/18 at 22:30 Ondansetron HCl (Zofran Inj) 4 mg Q6H PRN IV NAUSEA/VOMITING; Start 05/16/18 at 22:30 Acetaminophen (Tylenol Tab) 650 mg Q6H PRN PO .PAIN 1-3 OR TEMP; Start 05/16/18 at 22:30 Morphine Sulfate (morphine) 2 mg Q4H PRN IV .SEVERE PAIN 7-10 Last administered on 05/16/18at 23:19; Admin Dose 2 MG; Start 05/16/18 at 22:30 Famotidine (Pepcid Iv) 20 mg Q12 IV ; Start 05/17/18 at 09:00 Enoxaparin Sodium (Lovenox) 30 mg DAILY SC ; Start 05/17/18 at 09:00 Influenza Virus Vaccine Quadrival (Fluzone) 0.5 ml ONCE ONCE IM* ; Start 05/18/18 at 10:00; Stop 05/18/18 at 10:01 Allergies: Coded Allergies: No Known Allergy (Unverified , 05/17/18) Social History Smoking Status: Current every day smoker Exam/Review of Systems Exam Vitals Vital Signs Date Temp Pulse Resp B/P (MAP) Pulse Ox O2 O2 Flow FiO2 Time Delivery Rate 05/17/18 99.8 88 18 97/51 (66) 97 Room Air 00:54 Exam Patient is alert and oriented x3. HEENT pupils are reactive to light sclerae anicteric Lungs clear to auscultation Heart regular rate and rhythm gallops murmurs or rubs normal S1-S2 Abdomen soft nondistended tenderness right lower quadrant Results Result Diagram: 05/16/18200105/16/182001 Results 24hrs Laboratory Tests Test 05/16/18 20:02 05/16/18 20:04 White Blood Count 17.3 H Red Blood Count 5.38 Hemoglobin 15.6 Hematocrit 44.7 Mean Corpuscular Volume 83.1 Mean Corpuscular Hemoglobin 29.0 Mean Corpuscular Hemoglobin Concent 34.9 Red Cell Distribution Width 13.0 Platelet Count 225 Mean Platelet Volume 10.6 H Immature Granulocytes % 0.300 Neutrophils % 87.0 H Lymphocytes % 6.7 L Monocytes % 5.7 Eosinophils % 0.1 Basophils % 0.2 Nucleated Red Blood Cells % 0.0 Immature Granulocytes # 0.060 H Neutrophils # 15.0 H Lymphocytes # 1.2 Monocytes # 1.0 H Eosinophils # 0.0 Basophils # 0.0 Nucleated Red Blood Cells # 0.0 Sodium Level 140 Potassium Level 4.2 Chloride Level 104 Carbon Dioxide Level 23 Anion Gap 13 Blood Urea Nitrogen 15 Creatinine 0.73 Est Glomerular Filtrat Rate mL/min > 60 Glucose Level 102 Calcium Level 10.4 H Total Bilirubin 0.9 Direct Bilirubin 0.00 Indirect Bilirubin 0.9 Aspartate Amino Transf (AST/SGOT) 26 Alanine Aminotransferase (ALT/SGPT) 37 Alkaline Phosphatase 93 Total Protein 8.7 H Albumin 5.0 H Globulin 3.70 H Albumin/Globulin Ratio 1.35 Urine Color YELLOW Urine Clarity CLEAR Urine pH 5.0 Urine Specific [place] 1.019 Urine Ketones 1+ H Urine Nitrite NEGATIVE Urine Bilirubin NEGATIVE Urine Urobilinogen NEGATIVE Urine Leukocyte Esterase NEGATIVE Urine Hemoglobin NEGATIVE Urine Glucose NEGATIVE Urine Total Protein NEGATIVE Imaging Imaging CAT scan of abdomen pelvis reveals mildly enlarged spleen mildly enlarged lymph nodes in the mesentery consistent with mesenteric adenitis appendix appears unremarkable no free fluid or air. Medications Medication Current Medications Sodium Chloride 1,000 ml @ 100 mls/hr Q10H IV Last administered on 05/16/18at 23:40; Admin Dose 100 MLS/HR; Start 05/16/18 at 22:06 IV Flush (NS 3 ml) 3 ml PER PROTOCOL IV ; Start 05/16/18 at 22:30 Ondansetron HCl (Zofran Inj) 4 mg Q6H PRN IV NAUSEA/VOMITING; Start 05/16/18 at 22:30 Acetaminophen (Tylenol Tab) 650 mg Q6H PRN PO .PAIN 1-3 OR TEMP; Start 05/16/18 at 22:30 Morphine Sulfate (morphine) 2 mg Q4H PRN IV .SEVERE PAIN 7-10 Last administered on 05/16/18at 23:19; Admin Dose 2 MG; Start 05/16/18 at 22:30 Famotidine (Pepcid Iv) 20 mg Q12 IV ; Start 05/17/18 at 09:00 Enoxaparin Sodium (Lovenox) 30 mg DAILY SC ; Start 05/17/18 at 09:00 Influenza Virus Vaccine Quadrival (Fluzone) 0.5 ml ONCE ONCE IM* ; Start 05/18/18 at 10:00; Stop 05/18/18 at 10:01 SANAZ GALLEGO MD May 17, 2018 02:41
[2018-05-17] MEDS: morphine 2 MG INJ IV PRN ×3 (04:58→19:19)
[2018-05-17 07:24] VITALS: BP 90/55; PULSE 83; RESP 18
[2018-05-17] MEDS: SOD CHLORIDE 0.9% 1,000 ML IV SCH ×2 (08:53→22:19)
[2018-05-17] MEDS: FAMOTIDINE 20 MG INJ IV SCH ×2 (08:54→19:19)
[2018-05-17] MEDS: ENOXAPARIN 30 MG/0.3 ML SYG SC SCH (08:56)
--- NOTE | 2018-05-17 12:04 | HP ---
Date/Time of Note Date/Time of Note DATE: 05/17/18 TIME: 11:56 Assessment/Plan VTE Prophylaxis Risk score (from Ns)>0 risk: 0 SCD applied (from Ns): Yes Pharmacological prophylaxis: LMWH Lines/Catheters IV Catheter Type (from Nrsg): Peripheral IV Assessment/Plan Assessment/Plan -Intractable abdominal, morphine as needed for pain. Dr. Dewitt is asked to see patient in gastroenterology consultation. -Nausea and vomiting. Continue antiemetics and IV fluids. -Mesenteric adenitis, status post evaluation by Dr. Gutierrez in general surgery consultation, no recommendations for surgery at this time continue IV fluids and antibiotic. Dr. Shell is asked to see patient in oncology consultation. -Mild splenomegaly -Systemic inflammatory response syndrome with leukocytosis, start Zosyn. Further recommendations based on clinical course. Plan of care discussed with Dr. Gilliam. Result Diagram: 05/17/188 05/17/188 Results 24hrs Laboratory Tests Test 05/16/18 20:02 05/16/18 20:04 05/17/18 04:48 White Blood Count 17.3 H 12.0 #H Red Blood Count 5.38 4.48 L Hemoglobin 15.6 12.9 L Hematocrit 44.7 38.7 L Mean Corpuscular Volume 83.1 86.4 Mean Corpuscular Hemoglobin 29.0 28.8 L Mean Corpuscular Hemoglobin Concent 34.9 33.3 Red Cell Distribution Width 13.0 12.9 Platelet Count 225 176 # Mean Platelet Volume 10.6 H 10.7 H Immature Granulocytes % 0.300 0.600 H Neutrophils % 87.0 H 74.6 Lymphocytes % 6.7 L 17.1 Monocytes % 5.7 6.8 Eosinophils % 0.1 0.5 Basophils % 0.2 0.4 Nucleated Red Blood Cells % 0.0 0.0 Immature Granulocytes # 0.060 H 0.070 H Neutrophils # 15.0 H 9.0 H Lymphocytes # 1.2 2.1 Monocytes # 1.0 H 0.8 Eosinophils # 0.0 0.1 Basophils # 0.0 0.1 Nucleated Red Blood Cells # 0.0 0.0 Sodium Level 140 139 Potassium Level 4.2 4.0 Chloride Level 104 103 Carbon Dioxide Level 23 26 Anion Gap 13 10 Blood Urea Nitrogen 15 14 Creatinine 0.73 0.73 Est Glomerular Filtrat Rate mL/min > 60 > 60 Glucose Level 102 80 Calcium Level 10.4 H 9.5 Total Bilirubin 0.9 1.2 Direct Bilirubin 0.00 0.00 Indirect Bilirubin 0.9 1.2 H Aspartate Amino Transf (AST/SGOT) 26 20 Alanine Aminotransferase (ALT/SGPT) 37 35 Alkaline Phosphatase 93 71 Total Protein 8.7 H 7.1 # Albumin 5.0 H 4.1 Globulin 3.70 H 3.00 Albumin/Globulin Ratio 1.35 1.36 Urine Color YELLOW Urine Clarity CLEAR Urine pH 5.0 Urine Specific [place] 1.019 Urine Ketones 1+ H Urine Nitrite NEGATIVE Urine Bilirubin NEGATIVE Urine Urobilinogen NEGATIVE Urine Leukocyte Esterase NEGATIVE Urine Hemoglobin NEGATIVE Urine Glucose NEGATIVE Urine Total Protein NEGATIVE Hemoglobin A1c 4.9 HPI/ROS Admit Date/Time Admit Date/Time May 16, 2018 at 22:23 Hx of Present Illness The patient is a 22-year-old male who presented to the emergency room with abdominal pain nausea and vomiting patient has a history of gastritis and was evaluated in [facility] for abdominal pain 3 months ago and was discharged in stable condition according to patient. Patient underwent CT of the abdomen and pelvis which revealed mild splenomegaly and multiple mildly prominent lymph nodes in the central mesentery. Patient denies any fever chills denies any diarrhea denies shortness of breath denies headache denies chest pain. ROS 12 point review of system is negative except what mentioned in HPI PMH/Family/Social Past Medical History Medical History: other (Gastritis) Medications Current Medications Sodium Chloride 1,000 ml @ 100 mls/hr Q10H IV Last administered on 05/17/18at 08:53; Admin Dose 100 MLS/HR; Start 05/16/18 at 22:06 IV Flush (NS 3 ml) 3 ml PER PROTOCOL IV ; Start 05/16/18 at 22:30 Ondansetron HCl (Zofran Inj) 4 mg Q6H PRN IV NAUSEA/VOMITING; Start 05/16/18 at 22:30 Acetaminophen (Tylenol Tab) 650 mg Q6H PRN PO .PAIN 1-3 OR TEMP; Start 05/16/18 at 22:30 Morphine Sulfate (morphine) 2 mg Q4H PRN IV .SEVERE PAIN 7-10 Last administered on 05/17/18at 04:58; Admin Dose 2 MG; Start 05/16/18 at 22:30 Famotidine (Pepcid Iv) 20 mg Q12 IV Last administered on 05/17/18at 08:54; Admin Dose 20 MG; Start 05/17/18 at 09:00 Enoxaparin Sodium (Lovenox) 30 mg DAILY SC Last administered on 05/17/18at 08:56; Admin Dose 30 MG; Start 05/17/18 at 09:00 Influenza Virus Vaccine Quadrival (Fluzone) 0.5 ml ONCE ONCE IM* ; Start 05/18/18 at 10:00; Stop 05/18/18 at 10:01 Coded Allergies: No Known Allergy (Unverified , 05/17/18) Past Surgical History Past Surgical Hx: other (Rectal cyst removal) Family History Significant Family History: no pertinent family hx Social History Alcohol Use: none Smoking Status: Current every day smoker Drug Use: none Exam/Review of Systems Vital Signs Vitals Vital Signs Date Temp Pulse Resp B/P (MAP) Pulse Ox O2 O2 Flow FiO2 Time Delivery Rate 05/17/18 99.7 83 18 90/55 (67) 96 07:24 05/17/18 Room Air 00:54 Intake and Output 05/16/18 05/16/18 05/17/18 1515:00 23:00 07:00 IntakeIntake Total 1700 ml BalanceBalance 1700 ml Exam Constitutional: alert, oriented Head: normocephalic Neck: supple Respiratory: clear to auscultation Cardiovascular: nl pulses Gastrointestinal: soft, tender Musculoskeletal: nl extremities to inspection Extremities: normal pulses VERONICA KWONG May 17, 2018 12:04
[2018-05-17] MEDS: PIPER-TAZO 3.375 GM IV (PMX) 100 ML IVPB SCH ×3 (12:33→23:45)
--- NOTE | 2018-05-17 12:35 | CONS ---
Assessment/Plan Assessment/Plan Hospital Course (Demo Recall) 22 yo admitted with abdo pain, CT scan shows mildly prominent LN -LAD is not pathonogmonic for lymphoma -check HIV, HEP B, C, LDH, uric acid -check EBV titres -check CT Chest for full maurice evaluation Consultation Date/Type/Reason Admit Date/Time May 16, 2018 at 22:23 Date/Time of Note DATE: 05/17/18 TIME: 12:33 Hx of Present Illness The patient is a 22-year-old male who presented to the emergency room with abdominal pain nausea and vomiting patient has a history of gastritis and was evaluated in [facility] for abdominal pain 3 months ago and was discharged in stable condition according to patient. Patient underwent CT of the abdomen and pelvis which revealed mild splenomegaly and multiple mildly prom inent lymph nodes in the central mesentery. Patient denies any fever chills denies any diarrhea denies shortness of breath denies headache denies chest pain. We are asked to see pt for concern of slightly enlarged LN. CT AP shows: The lung bases are clear. No pneumoperitoneum is seen. Minimal hepatic steatosis. The oblique length of the spleen equals 13.4 cm suggestive of mild splenomegaly with the length of the spleen increased compared to the previous study. No abnormalities seen in the gallbladder, pancreas, adrenals or kidneys. No biliary dilatation is seen. The stomach is not distended. No abdominal aortic aneurysm is seen. Very small umbilical hernia containing fat only again seen. No renal or ureteral stone is seen. No abnormalities seen in the bladder or reproductive organs. No ascites is seen. No definite abnormalities seen in the colon. There is an unremarkable appendix. No significantly dilated small bowel loops are seen. Multiple mildly prominent lymph nodes are seen in the central mesentery appearing since previous study which could be secondary to mesenteric adenitis. No osseous abnormalities seen. IMPRESSION: Minimal hepatic steatosis. The oblique length of the spleen equals 13.4 cm suggestive of mild splenomegaly with the length of the spleen increased compared to the previous study. Multiple mildly prominent lymph nodes are seen in the central mesentery appearing since previous study which could be secondary to mesenteric adenitis. of note, pt reports he had similar symptoms 2 years ago and had w/u revealing "the same problem" . he is not able to tell me where he had imaging in past Constitutional: no complaints, improved Eyes: no complaints ENT: no complaints Respiratory: no complaints Gastrointestinal: pain, decreased appetite, nausea, vomiting Musculoskeletal: no complaints Skin: No no complaints, No bruising, No erythema, No laceration, No pruritis, No rash, No skin lesions, No other Endocrine: no complaints Past Medical History Medical History: other (Gastritis) Home Meds Discontinued Reported Medications [none] No Conflict Check 08/11/17 Discontinued Scripts Diphenhydramine Hcl* (Benadryl*) 25 Mg Cap, 25 MG PO Q6, #30 CAP Prov:ORIANA PRINGLE Martín 10/12/17 Ibuprofen* (Ibuprofen*) 600 Mg Tablet, 600 MG PO Q6 for 5 Days, TAB Prov:ORIANA PRINGLE Martín 10/12/17 Clindamycin Hcl* (Clindamycin Hcl*) 300 Mg Capsule, 300 MG PO TID for 10 Days, CAP Prov:ORIANA PRINGLE Martín 10/12/17 Medications Current Medications Sodium Chloride 1,000 ml @ 100 mls/hr Q10H IV Last administered on 05/17/18at 08:53; Admin Dose 100 MLS/HR; Start 05/16/18 at 22:06 IV Flush (NS 3 ml) 3 ml PER PROTOCOL IV ; Start 05/16/18 at 22:30 Ondansetron HCl (Zofran Inj) 4 mg Q6H PRN IV NAUSEA/VOMITING; Start 05/16/18 at 22:30 Acetaminophen (Tylenol Tab) 650 mg Q6H PRN PO .PAIN 1-3 OR TEMP; Start 05/16/18 at 22:30 Morphine Sulfate (morphine) 2 mg Q4H PRN IV .SEVERE PAIN 7-10 Last administered on 05/17/18at 04:58; Admin Dose 2 MG; Start 05/16/18 at 22:30 Famotidine (Pepcid Iv) 20 mg Q12 IV Last administered on 05/17/18at 08:54; Admin Dose 20 MG; Start 05/17/18 at 09:00 Enoxaparin Sodium (Lovenox) 30 mg DAILY SC Last administered on 05/17/18at 08:56; Admin Dose 30 MG; Start 05/17/18 at 09:00 Influenza Virus Vaccine Quadrival (Fluzone) 0.5 ml ONCE ONCE IM* ; Start 05/18/18 at 10:00; Stop 05/18/18 at 10:01 Piperacillin Sod/ Tazobactam Sod 100 ml @ 200 mls/hr Q6 IVPB ; Start 05/17/18 at 12:30 Allergies: Coded Allergies: No Known Allergy (Unverified , 05/17/18) Past Surgical History Past Surgical Hx: other (Rectal cyst removal) Social History Alcohol Use: none Smoking Status: Current every day smoker Drug Use: none Exam/Review of Systems Exam Vitals Vital Signs Date Temp Pulse Resp B/P (MAP) Pulse Ox O2 O2 Flow FiO2 Time Delivery Rate 05/17/18 99.7 83 18 90/55 (67) 96 07:24 05/17/18 Room Air 00:54 Intake and Output 05/16/18 05/16/18 05/17/18 1515:00 23:00 07:00 IntakeIntake Total 1700 ml BalanceBalance 1700 ml Constitutional: alert, oriented, well developed Psych: no complaints, nl mood/affect Eyes: nl conjunctiva, EOMI, nl lids, nl sclera, PERRL ENMT: nl external ears & nose, nl lips & teeth, nl nasal mucosa & septum Neck: supple, non-tender Respiratory: clear to auscultation, normal air movement Cardiovascular: regular rate and rhythm, nl pulses Gastrointestinal: soft, nl liver, spleen, non-tender Musculoskeletal: nl extremities to inspection, nl gait and stance Extremities: normal pulses Results Result Diagram: 05/17/188 05/17/18 0448 Results 24hrs Laboratory Tests Test 05/16/18 20:02 05/16/18 20:04 05/17/18 04:48 White Blood Count 17.3 H 12.0 #H Red Blood Count 5.38 4.48 L Hemoglobin 15.6 12.9 L Hematocrit 44.7 38.7 L Mean Corpuscular Volume 83.1 86.4 Mean Corpuscular Hemoglobin 29.0 28.8 L Mean Corpuscular Hemoglobin Concent 34.9 33.3 Red Cell Distribution Width 13.0 12.9 Platelet Count 225 176 # Mean Platelet Volume 10.6 H 10.7 H Immature Granulocytes % 0.300 0.600 H Neutrophils % 87.0 H 74.6 Lymphocytes % 6.7 L 17.1 Monocytes % 5.7 6.8 Eosinophils % 0.1 0.5 Basophils % 0.2 0.4 Nucleated Red Blood Cells % 0.0 0.0 Immature Granulocytes # 0.060 H 0.070 H Neutrophils # 15.0 H 9.0 H Lymphocytes # 1.2 2.1 Monocytes # 1.0 H 0.8 Eosinophils # 0.0 0.1 Basophils # 0.0 0.1 Nucleated Red Blood Cells # 0.0 0.0 Sodium Level 140 139 Potassium Level 4.2 4.0 Chloride Level 104 103 Carbon Dioxide Level 23 26 Anion Gap 13 10 Blood Urea Nitrogen 15 14 Creatinine 0.73 0.73 Est Glomerular Filtrat Rate mL/min > 60 > 60 Glucose Level 102 80 Calcium Level 10.4 H 9.5 Total Bilirubin 0.9 1.2 Direct Bilirubin 0.00 0.00 Indirect Bilirubin 0.9 1.2 H Aspartate Amino Transf (AST/SGOT) 26 20 Alanine Aminotransferase (ALT/SGPT) 37 35 Alkaline Phosphatase 93 71 Total Protein 8.7 H 7.1 # Albumin 5.0 H 4.1 Globulin 3.70 H 3.00 Albumin/Globulin Ratio 1.35 1.36 Urine Color YELLOW Urine Clarity CLEAR Urine pH 5.0 Urine Specific [place] 1.019 Urine Ketones 1+ H Urine Nitrite NEGATIVE Urine Bilirubin NEGATIVE Urine Urobilinogen NEGATIVE Urine Leukocyte Esterase NEGATIVE Urine Hemoglobin NEGATIVE Urine Glucose NEGATIVE Urine Total Protein NEGATIVE Hemoglobin A1c 4.9 Medications Medication Current Medications Sodium Chloride 1,000 ml @ 100 mls/hr Q10H IV Last administered on 05/17/18at 08:53; Admin Dose 100 MLS/HR; Start 05/16/18 at 22:06 IV Flush (NS 3 ml) 3 ml PER PROTOCOL IV ; Start 05/16/18 at 22:30 Ondansetron HCl (Zofran Inj) 4 mg Q6H PRN IV NAUSEA/VOMITING; Start 05/16/18 at 22:30 Acetaminophen (Tylenol Tab) 650 mg Q6H PRN PO .PAIN 1-3 OR TEMP; Start 05/16/18 at 22:30 Morphine Sulfate (morphine) 2 mg Q4H PRN IV .SEVERE PAIN 7-10 Last administered on 05/17/18at 04:58; Admin Dose 2 MG; Start 05/16/18 at 22:30 Famotidine (Pepcid Iv) 20 mg Q12 IV Last administered on 05/17/18at 08:54; Admin Dose 20 MG; Start 05/17/18 at 09:00 Enoxaparin Sodium (Lovenox) 30 mg DAILY SC Last administered on 05/17/18at 08:56; Admin Dose 30 MG; Start 05/17/18 at 09:00 Influenza Virus Vaccine Quadrival (Fluzone) 0.5 ml ONCE ONCE IM* ; Start 05/18/18 at 10:00; Stop 05/18/18 at 10:01 Piperacillin Sod/ Tazobactam Sod 100 ml @ 200 mls/hr Q6 IVPB ; Start 05/17/18 at 12:30 RUBIN SEQUEIRA May 17, 2018 12:35
[2018-05-17 14:54] VITALS: BP 91/53; PULSE 76; RESP 18
--- NOTE | 2018-05-17 19:00 | CONS ---
DATE OF ADMISSION: 05/16/2018 DATE OF CONSULTATION: HISTORY OF PRESENT ILLNESS: A 22-year-old gentleman presented to the ER with diffuse abdominal pain with nausea and vomiting. He was at [facility] and was diagnosed to have gastritis, where a C AT scan of the abdomen and pelvis was done which showed multiple lymph nodes consistent with the diag nosis of mesenteric lymphadenitis. No fever. No chills. No GI bleeding. PAST MEDICAL HISTORY: The patient has this kind of pain for the last 4 years, with a recent acute ex acerbation for the last 1 day. SOCIAL HISTORY: He does not drink alcohol but he smokes on a regular basis. PHYSICAL EXAMINATION: GENERAL: Well built and nourished. VITAL SIGNS: Stable. LUNGS: Clear. ABDOMEN: Soft. He jumps even on a simple touch. Hypersensitive abdominal skin. EXTREMITIES: No edema. CENTRAL NERVOUS SYSTEM: Grossly within normal limit. LABORATORY DATA: WBC is 17,000, hematocrit is 44. Calcium is 10.4. LFTs otherwise within normal li betty. MEDICATIONS: In-house medication reviewed. IMAGING STUDY: A CT scan of abdomen revealed mesenteric adenitis. IMPRESSION: 1. Abdominal pain, most probably related to mesenteric adenitis. 2. Mediterranean fever cannot be absolutely ruled out. 3. History of gastritis. PLAN: To start the patient on ibuprofen for mesenteric adenitis. Will continue it for a few days. If the pain is persistent after that, he might need colchicine for Mediterranean fever. Dictated By: ANGIE JUDD/NTS Conf#: [id number] DID#: [id number] CC: HALI AMANDA MD;*EndCC*
[2018-05-17 19:15] VITALS: BP 104/61; PULSE 84; RESP 20
[2018-05-17] MEDS: IBUPROFEN 600 MG TAB NGT SCH (22:19)
[2018-05-17] MEDS: morphine 4 MG/ML VIAL IV PRN (22:19)
[2018-05-18 02:00] VITALS: BP 89/51; PULSE 60; RESP 22
[2018-05-18] MEDS: morphine 4 MG/ML VIAL IV PRN (04:52)
[2018-05-18] MEDS: IBUPROFEN 600 MG TAB NGT SCH ×3 (04:53→22:00)
[2018-05-18] MEDS: PIPER-TAZO 3.375 GM IV (PMX) 100 ML IVPB SCH ×3 (05:35→18:33)
[2018-05-18 07:22] VITALS: BP 87/50; PULSE 61; RESP 18
[2018-05-18] MEDS ORDERED: SOD CHLORIDE 0.9% 100 ML ONE (09:59)
[2018-05-18] MEDS ORDERED: IOHEXOL 100 ML ONE (09:59)
[2018-05-18] MEDS ORDERED: INFLUENZA VIRUS VACCINE 0.5 ML (DISPENSING) IM* ONE (10:00)
[2018-05-18] MEDS: FAMOTIDINE 20 MG INJ IV SCH ×2 (10:04→20:47)
[2018-05-18] MEDS: ENOXAPARIN 30 MG/0.3 ML SYG SC SCH (10:10)
--- NOTE | 2018-05-18 13:49 | CONS ---
Assessment/Plan Assessment/Plan Hospital Course (Demo Recall) 22 yo admitted with abdo pain, CT scan shows mildly prominent LN -LAD is not pathonogmonic for lymphoma -HIV and Hep panel noted to be negative -to rule out a highly aggressive lymphoma a LDH and uric acid were ordered -check EBV titres -check CT Chest for full maurice evaluation. ordered today -continue Zosyn for mesenteric lymphadenitis Thank you for the opportunity to participate in this patients care A total of 40 minutes of face to face time was spent speaking with the patient, of which greater than 50% was spent in counseling and coordination of care and the detailed question and answer session. Consultation Date/Type/Reason Admit Date/Time May 17, 2018 at 19:28 Initial Consult Date 05/17/18 Type of Consult oncology Reason for Consultation Lymphadenopathy Requesting Provider: HALI AMANDA Date/Time of Note DATE: 05/18/18 TIME: 13:44 24 HR Interval Summary Free Text/Dictation pt states his lymphadenopathy has improved Exam/Review of Systems Exam Vitals Vital Signs Date Temp Pulse Resp B/P (MAP) Pulse Ox O2 O2 Flow FiO2 Time Delivery Rate 05/18/18 97.6 61 18 87/50 (62) 96 07:22 05/18/18 Room Air 02:00 Intake and Output 05/17/18 05/17/18 05/18/18 1515:00 23:00 07:00 IntakeIntake Total 1800 ml 900 ml 1200 ml BalanceBalance 1800 ml 900 ml 1200 ml Constitutional: alert, oriented Psych: no complaints Head: normocephalic Eyes: nl conjunctiva ENMT: nl external ears & nose Neck: supple Respiratory: clear to auscultation Cardiovascular: regular rate and rhythm Gastrointestinal: soft, tender Musculoskeletal: nl extremities to inspection Results Result Diagram: 05/18/18 0446 05/18/18 0446 Results 24hrs Laboratory Tests Test 05/18/18 04:46 White Blood Count 7.6 # Red Blood Count 4.48 L Hemoglobin 12.9 L Hematocrit 38.4 L Mean Corpuscular Volume 85.7 Mean Corpuscular Hemoglobin 28.8 L Mean Corpuscular Hemoglobin Concent 33.6 Red Cell Distribution Width 12.9 Platelet Count 154 Mean Platelet Volume 11.5 H Immature Granulocytes % 0.300 Neutrophils % 59.7 Lymphocytes % 28.1 Monocytes % 9.9 Eosinophils % 1.6 Basophils % 0.4 Nucleated Red Blood Cells % 0.0 Immature Granulocytes # 0.020 Neutrophils # 4.6 Lymphocytes # 2.1 Monocytes # 0.8 Eosinophils # 0.1 Basophils # 0.0 Nucleated Red Blood Cells # 0.0 Sodium Level 139 Potassium Level 4.2 Chloride Level 101 Carbon Dioxide Level 27 Anion Gap 11 Blood Urea Nitrogen 13 Creatinine 0.88 Est Glomerular Filtrat Rate mL/min > 60 Glucose Level 62 #L Calcium Level 9.5 Medications Medication Current Medications Sodium Chloride 1,000 ml @ 100 mls/hr Q10H IV Last administered on 05/17/18 22:19; Admin Dose 100 MLS/HR; Start 05/16/18 at 22:06 IV Flush (NS 3 ml) 3 ml PER PROTOCOL IV ; Start 05/16/18 at 22:30 Ondansetron HCl (Zofran Inj) 4 mg Q6H PRN IV NAUSEA/VOMITING Last administered on 05/17/18 22:18; Admin Dose 4 MG; Start 05/16/18 at 22:30 Acetaminophen (Tylenol Tab) 650 mg Q6H PRN PO .PAIN 1-3 OR TEMP; Start 05/16/18 at 22:30 Famotidine (Pepcid Iv) 20 mg Q12 IV Last administered on 05/18/18 10:04; Admin Dose 20 MG; Start 05/17/18 at 09:00 Enoxaparin Sodium (Lovenox) 30 mg DAILY SC Last administered on 05/18/18 10:10; Admin Dose 30 MG; Start 05/17/18 at 09:00 Piperacillin Sod/ Tazobactam Sod 100 ml @ 200 mls/hr Q6 IVPB Last administered on 05/18/18 12:59; Admin Dose 200 MLS/HR; Start 05/17/18 at 12:30 Ibuprofen (Motrin) 600 mg Q8 NGT Last administered on 05/18/18 04:53; Admin Dose 600 MG; Start 05/17/18 at 22:00 Morphine Sulfate (morphine) 4 mg Q4H PRN IV SEVERE PAIN LEVEL 7-10 Last administered on 05/18/18 04:52; Admin Dose 4 MG; Start 05/17/18 at 20:00 YAMEL BARNARD M.D. May 18, 2018 13:49
[2018-05-18 14:00] VITALS: BP 99/58; PULSE 65; RESP 18
--- NOTE | 2018-05-18 14:58 | PN ---
Date/Time of Note Date/Time of Note DATE: 05/18/18 TIME: 14:56 Assessment/Plan VTE Prophylaxis Risk score (from Ns)>0 risk: 0 [place] [facility] contraindicated: patient refusal Pharmacological prophylaxis: LMWH Lines/Catheters IV Catheter Type (from [facility] Peripheral IV Urinary Cath still in place: No Assessment/Plan Hospital Course Pt states decrease in abdominal pain, no N/V. Pending CT of the chest Assessment/Plan -Intractable abdominal, morphine as needed for pain. Dr. Dewitt is following in gastroenterology consultation. -Possible Mediterranean fever. Continue Ibuprofen. -Nausea and vomiting. Continue antiemetics and IV fluids. -Mesenteric adenitis, status post evaluation by Dr. Gutierrez in general surgery consultation, no recommendations for surgery at this time continue IV fluids and antibiotic. Dr. Shell is following in oncology consultation. -Mild splenomegaly -Systemic inflammatory response syndrome with leukocytosis, continue Zosyn. Further recommendations based on clinical course. Plan of care discussed with Dr. Gilliam. Result Diagram: 05/18/186 05/18/18 0446 Results 24hrs Laboratory Tests Test 05/18/18 04:46 White Blood Count 7.6 # Red Blood Count 4.48 L Hemoglobin 12.9 L Hematocrit 38.4 L Mean Corpuscular Volume 85.7 Mean Corpuscular Hemoglobin 28.8 L Mean Corpuscular Hemoglobin Concent 33.6 Red Cell Distribution Width 12.9 Platelet Count 154 Mean Platelet Volume 11.5 H Immature Granulocytes % 0.300 Neutrophils % 59.7 Lymphocytes % 28.1 Monocytes % 9.9 Eosinophils % 1.6 Basophils % 0.4 Nucleated Red Blood Cells % 0.0 Immature Granulocytes # 0.020 Neutrophils # 4.6 Lymphocytes # 2.1 Monocytes # 0.8 Eosinophils # 0.1 Basophils # 0.0 Nucleated Red Blood Cells # 0.0 Sodium Level 139 Potassium Level 4.2 Chloride Level 101 Carbon Dioxide Level 27 Anion Gap 11 Blood Urea Nitrogen 13 Creatinine 0.88 Est Glomerular Filtrat Rate mL/min > 60 Glucose Level 62 #L Uric Acid 5.1 Calcium Level 9.5 Lactate Dehydrogenase 569 Exam/Review of Systems Exam Vitals Vital Signs Date Temp Pulse Resp B/P (MAP) Pulse Ox O2 O2 Flow FiO2 Time Delivery Rate 05/18/18 97.6 61 18 87/50 (62) 96 07:22 05/18/18 Room Air 02:00 Intake and Output 05/17/18 05/17/18 05/18/18 1515:00 23:00 07:00 IntakeIntake Total 1800 ml 900 ml 1200 ml BalanceBalance 1800 ml 900 ml 1200 ml Exam Constitutional: alert, oriented Respiratory: clear to auscultation Cardiovascular: nl pulses Gastrointestinal: soft, tender Musculoskeletal: nl extremities to inspection Extremities: normal pulses Results Results 24hrs Laboratory Tests Test 05/18/18 04:46 White Blood Count 7.6 # Red Blood Count 4.48 L Hemoglobin 12.9 L Hematocrit 38.4 L Mean Corpuscular Volume 85.7 Mean Corpuscular Hemoglobin 28.8 L Mean Corpuscular Hemoglobin Concent 33.6 Red Cell Distribution Width 12.9 Platelet Count 154 Mean Platelet Volume 11.5 H Immature Granulocytes % 0.300 Neutrophils % 59.7 Lymphocytes % 28.1 Monocytes % 9.9 Eosinophils % 1.6 Basophils % 0.4 Nucleated Red Blood Cells % 0.0 Immature Granulocytes # 0.020 Neutrophils # 4.6 Lymphocytes # 2.1 Monocytes # 0.8 Eosinophils # 0.1 Basophils # 0.0 Nucleated Red Blood Cells # 0.0 Sodium Level 139 Potassium Level 4.2 Chloride Level 101 Carbon Dioxide Level 27 Anion Gap 11 Blood Urea Nitrogen 13 Creatinine 0.88 Est Glomerular Filtrat Rate mL/min > 60 Glucose Level 62 #L Uric Acid 5.1 Calcium Level 9.5 Lactate Dehydrogenase 569 Medications Medication Current Medications Sodium Chloride 1,000 ml @ 100 mls/hr Q10H IV Last administered on 05/17/18at 22:19; Admin Dose 100 MLS/HR; Start 05/16/18 at 22:06 IV Flush (NS 3 ml) 3 ml PER PROTOCOL IV ; Start 05/16/18 at 22:30 Ondansetron HCl (Zofran Inj) 4 mg Q6H PRN IV NAUSEA/VOMITING Last administered on 05/17/18at 22:18; Admin Dose 4 MG; Start 05/16/18 at 22:30 Acetaminophen (Tylenol Tab) 650 mg Q6H PRN PO .PAIN 1-3 OR TEMP; Start 05/16/18 at 22:30 Famotidine (Pepcid Iv) 20 mg Q12 IV Last administered on 05/18/18at 10:04; Admin Dose 20 MG; Start 05/17/18 at 09:00 Enoxaparin Sodium (Lovenox) 30 mg DAILY SC Last administered on 05/18/18 10:10; Admin Dose 30 MG; Start 05/17/18 at 09:00 Piperacillin Sod/ Tazobactam Sod 100 ml @ 200 mls/hr Q6 IVPB Last administered on 05/18/18 12:59; Admin Dose 200 MLS/HR; Start 05/17/18 at 12:30 Ibuprofen (Motrin) 600 mg Q8 NGT Last administered on 05/18/18 04:53; Admin Dose 600 MG; Start 05/17/18 at 22:00 Morphine Sulfate (morphine) 4 mg Q4H PRN IV SEVERE PAIN LEVEL 7-10 Last administered on 05/18/18 04:52; Admin Dose 4 MG; Start 05/17/18 at 20:00 VERONICA KWONG May 18, 2018 14:58
[2018-05-18] MEDS: SOD CHLORIDE 0.9% 1,000 ML IV SCH ×3 (17:09→20:47)
[2018-05-18 19:15] VITALS: BP 107/57; PULSE 79; RESP 20
--- NOTE | 2018-05-18 19:15 | CONS ---
Assessment/Plan Assessment/Plan Assessment/Plan (Daily) IMPRESSION: 1. Abdominal pain, most probably related to mesenteric adenitis. 2. Mediterranean fever cannot be absolutely ruled out. 3. History of gastritis. Plan continue ibuprofen CT chest negative advance diet Consultation Date/Type/Reason Admit Date/Time May 17, 2018 at 19:28 Initial Consult Date 05/17/18 Requesting Provider: HALI AMANDA Date/Time of Note DATE: 05/18/18 TIME: 19:13 24 HR Interval Summary Constitutional: improved Exam/Review of Systems Exam Vitals Vital Signs Date Temp Pulse Resp B/P (MAP) Pulse Ox O2 O2 Flow FiO2 Time Delivery Rate 05/18/18 98.4 65 18 99/58 (72) 95 14:00 05/18/18 Room Air 02:00 Intake and Output 05/17/18 05/17/18 05/18/18 1414:59 22:59 06:59 IntakeIntake Total 1200 ml 1500 ml 1200 ml BalanceBalance 1200 ml 1500 ml 1200 ml Constitutional: oriented Psych: no complaints Head: normocephalic, atraumatic Respiratory: clear to auscultation, normal air movement Cardiovascular: regular rate and rhythm, nl pulses Gastrointestinal: tender Extremities: normal pulses Results Result Diagram: 05/18/18 0446 05/18/18 0446 Results 24hrs Laboratory Tests Test 05/18/18 04:46 White Blood Count 7.6 # Red Blood Count 4.48 L Hemoglobin 12.9 L Hematocrit 38.4 L Mean Corpuscular Volume 85.7 Mean Corpuscular Hemoglobin 28.8 L Mean Corpuscular Hemoglobin Concent 33.6 Red Cell Distribution Width 12.9 Platelet Count 154 Mean Platelet Volume 11.5 H Immature Granulocytes % 0.300 Neutrophils % 59.7 Lymphocytes % 28.1 Monocytes % 9.9 Eosinophils % 1.6 Basophils % 0.4 Nucleated Red Blood Cells % 0.0 Immature Granulocytes # 0.020 Neutrophils # 4.6 Lymphocytes # 2.1 Monocytes # 0.8 Eosinophils # 0.1 Basophils # 0.0 Nucleated Red Blood Cells # 0.0 Sodium Level 139 Potassium Level 4.2 Chloride Level 101 Carbon Dioxide Level 27 Anion Gap 11 Blood Urea Nitrogen 13 Creatinine 0.88 Est Glomerular Filtrat Rate mL/min > 60 Glucose Level 62 #L Uric Acid 5.1 Calcium Level 9.5 Lactate Dehydrogenase 569 Medications Medication Current Medications Sodium Chloride 1,000 ml @ 100 mls/hr Q10H IV Last administered on 05/18/18 17:09; Admin Dose 100 MLS/HR; Start 05/16/18 at 22:06 IV Flush (NS 3 ml) 3 ml PER PROTOCOL IV ; Start 05/16/18 at 22:30 Ondansetron HCl (Zofran Inj) 4 mg Q6H PRN IV NAUSEA/VOMITING Last administered on 05/17/18 22:18; Admin Dose 4 MG; Start 05/16/18 at 22:30 Acetaminophen (Tylenol Tab) 650 mg Q6H PRN PO .PAIN 1-3 OR TEMP; Start 05/16/18 at 22:30 Famotidine (Pepcid Iv) 20 mg Q12 IV Last administered on 05/18/18 10:04; Admin Dose 20 MG; Start 05/17/18 at 09:00 Enoxaparin Sodium (Lovenox) 30 mg DAILY SC Last administered on 05/18/18 10:10; Admin Dose 30 MG; Start 05/17/18 at 09:00 Piperacillin Sod/ Tazobactam Sod 100 ml @ 200 mls/hr Q6 IVPB Last administered on 05/18/18 18:33; Admin Dose 200 MLS/HR; Start 05/17/18 at 12:30 Ibuprofen (Motrin) 600 mg Q8 NGT Last administered on 05/18/18 16:02; Admin Do se 600 MG; Start 05/17/18 at 22:00 Morphine Sulfate (morphine) 4 mg Q4H PRN IV SEVERE PAIN LEVEL 7-10 Last administered on 05/18/18 04:52; Admin Dose 4 MG; Start 05/17/18 at 20:00 Nicotine (Nicoderm 7 Mg/ 24 Hr) 1 patch DAILY TRANSDERM ; Start 05/18/18 at 17:00 ANGIE LATHAM MD May 18, 2018 19:15
[2018-05-18 19:54] VITALS: BP 108/56; PULSE 74; RESP 18
[2018-05-18] MEDS: NICOTINE (7 MG/24 HR) PATCH TRANSDERM SCH (20:46)
[2018-05-19] MEDS: PIPER-TAZO 3.375 GM IV (PMX) 100 ML IVPB SCH ×3 (00:24→11:24)
[2018-05-19 02:50] VITALS: BP 101/67; PULSE 72; RESP 20
[2018-05-19] MEDS: SOD CHLORIDE 0.9% 1,000 ML IV SCH (04:26)
[2018-05-19] MEDS: IBUPROFEN 600 MG TAB NGT SCH ×3 (05:44→14:00)
[2018-05-19 07:21] VITALS: BP 95/51; PULSE 52; RESP 18
[2018-05-19] MEDS: FAMOTIDINE 20 MG INJ IV SCH (10:12)
[2018-05-19] MEDS: NICOTINE (7 MG/24 HR) PATCH TRANSDERM SCH (10:14)
[2018-05-19] MEDS: ENOXAPARIN 30 MG/0.3 ML SYG SC SCH (10:16)
--- NOTE | 2018-05-19 13:26 | CONS ---
Assessment/Plan Assessment/Plan Hospital Course (Demo Recall) 22 yo admitted with abdo pain, CT scan shows mildly prominent LN -LAD is not pathonogmonic for lymphoma -check HIV negatiive, HEP B, C negative -normal LDH -EBV testing suggestive of past infection -CT chest shows no evidence of lymphadenopathy -appears that mildly increased LN are likely reactive -f/u CT AP in 6 mos will sign off please call with questions Consultation Date/Type/Reason Admit Date/Time May 17, 2018 at 19:28 Initial Consult Date 05/17/18 Requesting Provider: HALI AMANDA Date/Time of Note DATE: 05/19/18 TIME: 13:25 24 HR Interval Summary Free Text/Dictation w/u negative as ordered Exam/Review of Systems Exam Vitals Vital Signs Date Temp Pulse Resp B/P (MAP) Pulse Ox O2 O2 Flow FiO2 Time Delivery Rate 05/19/18 99.9 52 18 95/51 (66) 100 07:21 05/19/18 Room Air 02:50 Intake and Output 05/18/18 05/18/18 05/19/18 1515:00 23:00 07:00 IntakeIntake Total 200 ml 600 ml 600 ml BalanceBalance 200 ml 600 ml 600 ml Results Result Diagram: 05/18/186 05/18/18 0446 Medications Medication Current Medications Sodium Chloride 1,000 ml @ 100 mls/hr Q10H IV Last administered on 05/19/18at 04:26; Admin Dose 100 MLS/HR; Start 05/16/18 at 22:06 IV Flush (NS 3 ml) 3 ml PER PROTOCOL IV ; Start 05/16/18 at 22:30 Ondansetron HCl (Zofran Inj) 4 mg Q6H PRN IV NAUSEA/VOMITING Last administered on 05/17/18at 22:18; Admin Dose 4 MG; Start 05/16/18 at 22:30 Acetaminophen (Tylenol Tab) 650 mg Q6H PRN PO .PAIN 1-3 OR TEMP; Start 05/16/18 at 22:30 Famotidine (Pepcid Iv) 20 mg Q12 IV Last administered on 05/19/18at 10:12; Admin Dose 20 MG; Start 05/17/18 at 09:00 Enoxaparin Sodium (Lovenox) 30 mg DAILY SC Last administered on 05/19/18 10:16; Admin Dose 30 MG; Start 05/17/18 at 09:00 Piperacillin Sod/ Tazobactam Sod 100 ml @ 200 mls/hr Q6 IVPB Last administered on 05/19/18 11:24; Admin Dose 200 MLS/HR; Start 05/17/18 at 12:30 Ibuprofen (Motrin) 600 mg Q8 NGT Last administered on 05/18/18 22:00; Admin Dose 600 MG; Start 05/17/18 at 22:00 Morphine Sulfate (morphine) 4 mg Q4H PRN IV SEVERE PAIN LEVEL 7-10 Last administered on 05/18/18 04:52; Admin Dose 4 MG; Start 05/17/18 at 20:00 Nicotine (Nicoderm 7 Mg/ 24 Hr) 1 patch DAILY TRANSDERM Last administered on 05/19/18 10:14; Admin Dose 1 PATCH; Start 05/18/18 at 17:00 RUBIN SEQUEIRA May 19, 2018 13:26
[2018-05-19 13:34] VITALS: BP 119/71; PULSE 91; RESP 18
--- NOTE | 2018-05-19 14:52 | PDOCDIS ---
Discharge Instructions CONDITION [id number] Patient Condition: [id number] Stable HOME CARE INSTRUCTIONS: [id number] Diet Instructions: [id number] ACTIVITY: [id number] Activity Restrictions: [id number] Slowly Increase Activity Rest between Activity Avoid heavy lifting Do not operate Machinery Do not operate Power Tool Avoid Heavy Housework FOLLOW UP/APPOINTMENTS Follow-up Plan FU with Primary x 1 week Fu Oncologist as recommended Call 911 or got to the nearest hospital if symptoms get worse. Patient verbalized understanding discharge instructions. Mario Gilliam/staff SHAUN BARBOUR May 19, 2018 14:52
[2018-05-19] MEDS ORDERED: METR500T PO (14:59)
[2018-05-19] MEDS ORDERED: LEVO500T48 PO (14:59)
--- NOTE | 2018-05-19 15:01 | DS ---
Date/Time of Note Date/Time of Note DATE: 05/19/18 TIME: 15:01 Discharge Summary Admission/Discharge Info Admit Date/Time May 17, 2018 at 19:28 Discharge Date/Time Patient Condition: Stable Home Meds Active Scripts Metronidazole* (Flagyl*) 500 Mg Tablet, 500 MG PO TID for 7 Days, TAB Prov:SHAUN BARBOUR 05/19/18 Levofloxacin* (Levaquin*) 500 Mg Tablet, 500 MG PO DAILY for 7 Days, TAB Prov:SHAUN BARBOUR 05/19/18 Discontinued Reported Medications [none] No Conflict Check 08/11/17 Discontinued Scripts Diphenhydramine Hcl* (Benadryl*) 25 Mg Cap, 25 MG PO Q6, #30 CAP Prov:ORIANA PRINGLE 10/12/17 Ibuprofen* (Ibuprofen*) 600 Mg Tablet, 600 MG PO Q6 for 5 Days, TAB Prov:ORIANA PRINGLE 10/12/17 Clindamycin Hcl* (Clindamycin Hcl*) 300 Mg Capsule, 300 MG PO TID for 10 Days, CAP Prov:ORIANA PRINGLE 10/12/17 Follow-up Plan FU with Primary x 1 week Fu Oncologist as recommended Call 911 or got to the nearest hospital if symptoms get worse. Patient verbalized understanding discharge instructions. Mario Gilliam/staff Primary Care Provider Not On Staff Doctor Time spent on discharge: < 30 minutes SHAUN BARBOUR May 19, 2018 15:01
== END 2018-05-19 15:45 | disposition home or self-care (01) | DRG 872 ==
LOC: E/R 19:46 → MS1 22:23 → OBSVTOIN 05-17 19:28 → MS1 05-18 19:09
PROVIDERS: ADMIT Internal Medicine; ATTEND Internal Medicine
DX: A41.9 Sepsis, unspecified organism (principal); A23.9 Brucellosis, unspecified; I88.0 Nonspecific mesenteric lymphadenitis; K29.70 Gastritis, unspecified, without bleeding; K62.89 Other specified diseases of anus and rectum; F17.200 Nicotine dependence, unspecified, uncomplicated; R16.1 Splenomegaly, not elsewhere classified; R11.2 Nausea with vomiting, unspecified; D72.829 Elevated white blood cell count, unspecified; K76.0 Fatty (change of) liver, not elsewhere classified
CPT/HCPCS: 36415; 71260; 74176; 80048; 80053; 81003; 83036; 83615; 84560; 85025; 86664; 86703; 86704; 86803; 87340; 90686; 96361; 96374; 96375; G0378; J1170; J1650; J2270; J2405; J2543; J7030; Q9967

== ENCOUNTER 2018-07-01 21:19 | Emergency (ER) | payer OTHER ==
[~2018-07-01] VITALS: Ht 162.6 cm; Wt 67.1 kg
[~2018-07-01 21:19] MED LIST changes: -BEN25 PO; -CLIN300C10 PO; -IBUP-1542 PO; +LEVO500T48 PO; +METR500T PO
[2018-07-01 21:21] VITALS: Ht 162.6 cm; Wt 67.1 kg
[2018-07-01] MEDS ORDERED: ONDANSETRON 4 MG INJ IV STA (22:28)
[2018-07-01] MEDS ORDERED: morphine 4 MG/ML VIAL IV STA (22:28)
[2018-07-01] MEDS ORDERED: SOD CHLORIDE 0.9% 500 ML IV STA (22:28)
[2018-07-02] MEDS ORDERED: KETOROLAC 30 MG INJ IV STA (00:29)
[2018-07-02] MEDS ORDERED: NAPR-985 PO (01:07)
--- NOTE | 2018-07-02 01:10 | ERD ---
ER Documentation Chief Complaint Chief Complaint abdominal pain x 1 day HPI 22yo M presents with complaint of abdominal pain off an on x 4 months. Most recent episode onset 12hrs [employer]. Pt notes associated vomiting with 2 episodes in past 24hours, no diarrhea. Pt states to currently have a referral to GI for work-up of chronic abdominal pain, but will not be able to see specialist until September. Pt has presented multiple time to ER for similar complaint, states to have been given multiple different diagnosis for his pain but no consensus has been made. Pt has not taken any medication for his pain. Rates as 8/10 in pain. Admits to tobacco and marijuana use, but has not consumed recently. ROS All systems reviewed and are negative except as per history of present illness. Medications Home Meds Active Scripts Naproxen* (Naprosyn*) 500 Mg Tablet, 500 MG PO BID PRN for PAIN AND/OR INFLAMMATION, #30 TAB Prov:RAMESH JUNG PA-C 07/02/18 Metronidazole* (Flagyl*) 500 Mg Tablet, 500 MG PO TID for 7 Days, TAB Prov:SHAUN BARBOUR 05/19/18 Levofloxacin* (Levaquin*) 500 Mg Tablet, 500 MG PO DAILY for 7 Days, TAB Prov:SHAUN BARBOUR 05/19/18 Allergies Allergies: Coded Allergies: No Known Allergy (Unverified , 05/17/18) PMhx/Soc Medical and Surgical Hx: pt denies Medical Hx, pt denies Surgical Hx History of Surgery: No Anesthesia Reaction: No Hx Neurological Disorder: No Hx Respiratory Disorders: No Hx Cardiac Disorders: No Hx Psychiatric Problems: No Hx Miscellaneous Medical Probl: No Hx Alcohol Use: No Hx Substance Use: Yes (weeds) Hx Tobacco Use: Yes Smoking Status: Current every day smoker Physical Exam Vitals Vital Signs Date Temp Pulse Resp B/P (MAP) Pulse Ox O2 O2 Flow FiO2 Time Delivery Rate 07/02/18 99.0 72 17 110/56 98 Room Air 01:16 (74) 07/02/18 99.1 77 17 94/46 (62) 95 Room Air 00:37 07/01/18 98.8 100 20 138/77 98 21:21 (97) Physical Exam General: well developed, well nourished Head/Eyes: atraumatic, normocephalic ENT: atraumatic, moist mucous membranes, normal pharynx Neck: supple/no meningismus, non-tender, full range of motion, no lymphadenopathy Respiratory: no distress, no tenderness, normal breath sounds, no wheezes, no rales, no rhonchi Cardio: regular rate and rhythm, normal heart sounds, normal capillary refill Abdomen: Positive bowel sounds. Diffuse tenderness to palpation most severe at the RLQ. Back: atraumatic, normal inspection, full range of motion, no CVA tenderness Skin: normal color, no rash, warm, dry, intact, no contusions Neurologic: alert, oriented, normal speech, no motor deficits, normal gait Result Diagram: 07/01/18224907/01/182249 Results 24 hrs Laboratory Tests Test 07/01/18 22:50 07/01/18 22:51 White Blood Count 12.9 10^3/ul Red Blood Count 5.54 10^6/ul Hemoglobin 15.9 g/dl Hematocrit 47.3 % Mean Corpuscular Volume 85.4 fl Mean Corpuscular Hemoglobin 28.7 pg Mean Corpuscular Hemoglobin Concent 33.6 g/dl Red Cell Distribution Width 13.3 % Platelet Count 200 10^3/UL Mean Platelet Volume 10.4 fl Immature Granulocytes % 0.200 % Neutrophils % 79.9 % Lymphocytes % 12.2 % Monocytes % 6.6 % Eosinophils % 0.9 % Basophils % 0.2 % Nucleated Red Blood Cells % 0.0 /100WBC Immature Granulocytes # 0.030 10^3/ul Neutrophils # 10.3 10^3/ul Lymphocytes # 1.6 10^3/ul Monocytes # 0.9 10^3/ul Eosinophils # 0.1 10^3/ul Basophils # 0.0 10^3/ul Nucleated Red Blood Cells # 0.0 10^3/ul Prothrombin Time 13.2 Sec Prothrombin Time Ratio 1.0 INR International Normalized Ratio 0.99 Activated Partial Thromboplast Time 27.4 Sec Sodium Level 142 mmol/L Potassium Level 4.0 mmol/L Chloride Level 100 mmol/L Carbon Dioxide Level 27 mmol/L Anion Gap 15 Blood Urea Nitrogen 15 mg/dl Creatinine 0.86 mg/dl Est Glomerular Filtrat Rate mL/min > 60 mL/min Glucose Level 95 mg/dl Calcium Level 10.5 mg/dl Total Bilirubin 1.5 mg/dl Direct Bilirubin 0.00 mg/dl Indirect Bilirubin 1.5 mg/dl Aspartate Amino Transf (AST/SGOT) 20 IU/L Alanine Aminotransferase (ALT/SGPT) 30 IU/L Alkaline Phosphatase 100 IU/L Total Protein 8.5 g/dl Albumin 5.2 g/dl Globulin 3.30 g/dl Albumin/Globulin Ratio 1.57 Lipase 23 U/L Urine Color YELLOW Urine Clarity SLIGHTLY CLOUDY Urine pH 5.0 Urine Specific Mccamey 1.021 Urine Ketones 1+ mg/dL Urine Nitrite NEGATIVE mg/dL Urine Bilirubin NEGATIVE mg/dL Urine Urobilinogen NEGATIVE mg/dL Urine Leukocyte Esterase TRACE Shea/ul Urine Microscopic RBC 2 /HPF Urine Microscopic WBC 16 /HPF Urine Mucus MANY /HPF Urine Hemoglobin NEGATIVE mg/dL Urine Glucose NEGATIVE mg/dL Urine Total Protein NEGATIVE mg/dl Current Medications Medications Dose Sig/Savage Start Time Status Last (Trade) Ordered Route PRN Stop Time Admin Dose Reason Admin Sodium 500 ml @ Q1H STAT 07/01/18 DC 07/01/18 Chloride 500 mls/hr IV 22:28 23:02 07/01/18 23:27 Morphine 4 mg ONCE STAT 07/01/18 DC 07/01/18 Sulfate IV 22:28 23:01 (morphine) 07/01/18 22:30 Ondansetron 4 mg ONCE STAT 07/01/18 DC 07/01/18 HCl (Zofran IV 22:28 23:01 Inj) 07/01/18 22:30 Ketorolac 30 mg ONCE STAT 07/02/18 DC 07/02/18 Tromethamine IV 00:29 00:40 (Toradol) 07/02/18 00:30 Procedures/MDM MDM: This is a 22-year old male who presents to the ED for evaluation of abdominal pain and vomiting. Given focal RLQ tenderness labs and imaging performed to r/o appendicitis. CT imaging negative for acute abdomen, labs revealed slightly elevated white count of 12.9, but otherwise unremarkable. Pt received IVF, Morphine 4mg IV, Zofran 4mg IV, and Toradol 30mg IV. Pt noted marked improvement in symptoms while in ED with resolution in vomiting. Case discussed with Dr. Coombs who suggested possibility of Familial Mediterranean fever given pt persistent presentation and unremarkable work-ups. Discussed possibility with patient and advised to f/u with PCP for possible work-up. Pt upon re-evaluation stable, vital signs normal, in no-acute distress, and pain improved. Pt stable for discharge at this time with outpatient f/u with PCP recommended in next 1-2 days. Counseled regarding strict ED return precautions. Pt to return at the return or development of any new or worsening symptoms. Pt expressed verbal understanding and agreement to treatment plan. All questions addressed and answered. Departure Diagnosis: Primary Impression: Abdominal pain Abdominal location: generalized Qualified Codes: R10.84 - Generalized abdominal pain Condition: Stable Patient Instructions: Abdominal Pain Additional Instructions: Please follow-up with your PCP within the next few days for referral to GI to rule out Familial Mediterranean Fever. RAMESH JUNG PA-C Jul 02, 2018 01:10
[2018-07-02 01:16] VITALS: BP 110/56; PULSE 72; RESP 17
== END 2018-07-02 01:17 | disposition home or self-care (01) ==
LOC: FTE 21:19
DX: R10.84 Generalized abdominal pain (principal); F17.210 Nicotine dependence, cigarettes, uncomplicated; R11.10 Vomiting, unspecified
CPT/HCPCS: 36415; 71045; 74176; 80053; 81001; 83690; 85025; 85610; 85730; 96361; 96374; 96375; J1885; J2270; J2405; J7040; Z7502

== ENCOUNTER 2018-10-27 19:45 | Emergency (ER) | payer OTHER ==
[~2018-10-27] VITALS: Ht 175.3 cm; Wt 73.6 kg
[~2018-10-27 19:45] MED LIST changes: +FAMO-96 PO; +IBUP-1542 PO; +NAPR-985 PO; +ONDA4TAB14 PO; +TRAM50TA2 PO
[2018-10-27 19:48] VITALS: Ht 175.3 cm; Wt 73.6 kg
[2018-10-27] MEDS ORDERED: morphine 2 MG INJ IV STA (20:30)
[2018-10-27] MEDS ORDERED: SOD CHLORIDE 0.9% 1,000 ML IV STA (20:30)
[2018-10-27] MEDS ORDERED: ONDANSETRON 4 MG INJ IV STA (20:30)
[2018-10-27] MEDS ORDERED: FAMOTIDINE 20 MG TAB PO STA (20:30)
--- NOTE | 2018-10-27 20:55 | ERD ---
ER Documentation Chief Complaint Chief Complaint RUQ ab pain today; N&V,too HPI 23-year-old male with past medical history of chronic abdominal pain, no past surgical history who presents with complaint of abdominal pain over the past day. Patient states he was having constant sharp pain started in the right upper quadrant, right lower quadrant and radiating to the periumbilical region. He has had several bouts of nonbilious nonbloody vomiting. No reported fevers, chills, diarrhea, testicular pain, chest pain, shortness of breath, drug or alcohol abuse, states he does smoke marijuana but not recently. He was recently in the emergency room June with similar complaints and had a negative work-up including CAT scan of the abdomen and pelvis. Last bowel movement was yesterday and patient reports he is actively passing gas. ROS All systems reviewed and are negative except as per history of present illness. Medications Home Meds Active Scripts Ibuprofen* (Motrin*) 600 Mg Tab, 600 MG PO Q6, #30 TAB Prov:KRYSTAL HYDE PA-C 10/27/18 Famotidine* (Pepcid*) 20 Mg Tablet, 20 MG PO BID for 4 Days, TAB Prov:KRYSTAL HYDE PA-C 10/27/18 Ondansetron (Ondansetron Odt) 4 Mg Tab.rapdis, 4 MG PO Q6H PRN for NAUSEA AND/OR VOMITING, #10 TAB Prov:KRYSTAL HYDEC 10/27/18 Tramadol HCl (Tramadol HCl) 50 Mg Tablet, 50 MG PO Q6 PRN for PAIN, #20 TAB Prov:KRYSTAL HYDEC 10/27/18 Naproxen* (Naprosyn*) 500 Mg Tablet, 500 MG PO BID PRN for PAIN AND/OR INFLAMMATION, #30 TAB Prov:RAMESH JUNG-C 07/02/18 Metronidazole* (Flagyl*) 500 Mg Tablet, 500 MG PO TID for 7 Days, TAB Prov:SHAUN BARBOUR 05/19/18 Levofloxacin* (Levaquin*) 500 Mg Tablet, 500 MG PO DAILY for 7 Days, TAB Prov:SHAUN BARBOUR 05/19/18 Allergies Allergies: Coded Allergies: No Known Allergy (Unverified , 05/17/18) PMhx/Soc Medical and Surgical Hx: pt denies Surgical Hx History of Surgery: No Anesthesia Reaction: No Hx Neurological Disorder: No Hx Respiratory Disorders: No Hx Cardiac Disorders: No Hx Psychiatric Problems: No Hx Miscellaneous Medical Probl: Yes (CHRONIC ABDOMINAL PAIN ) Hx Alcohol Use: No Hx Substance Use: Yes (weeds) Hx Tobacco Use: Yes Smoking Status: Current every day smoker FmHx Family History: No diabetes, No coronary disease, No other Physical Exam Vitals Vital Signs Date Temp Pulse Resp B/P (MAP) Pulse Ox O2 O2 Flow FiO2 Time Delivery Rate 10/27/18 98.5 102 22 112/60 97 19:48 (77) Physical Exam I have reviewed the triage vital signs. Const: Well nourished, well developed, appears stated age Eyes: PERRL, no conjunctival injection HENT: NCAT, Neck supple without meningismus CV: RRR, Warm, well-perfused extremities RESP: CTAB, Unlabored respiratory effort GI: Tense but soft, tender to right upper quadrant, right lower quadrant, and periumbilical region, some guarding, non-distended, no masses MSK: No gross deformities appreciated Skin: Warm, dry. No rashes Neuro: grossly non focal Psych: Appropriate mood and affect. Result Diagram: 10/27/18204210/27/182042 Results 24 hrs Laboratory Tests Test 10/27/18 20:43 White Blood Count 11.0 10^3/ul Red Blood Count 5.14 10^6/ul Hemoglobin 15.2 g/dl Hematocrit 44.4 % Mean Corpuscular Volume 86.4 fl Mean Corpuscular Hemoglobin 29.6 pg Mean Corpuscular Hemoglobin Concent 34.2 g/dl Red Cell Distribution Width 12.7 % Platelet Count 204 10^3/UL Mean Platelet Volume 10.3 fl Immature Granulocytes % 0.200 % Neutrophils % 72.1 % Lymphocytes % 18.2 % Monocytes % 7.5 % Eosinophils % 1.5 % Basophils % 0.5 % Nucleated Red Blood Cells % 0.0 /100WBC Immature Granulocytes # 0.020 10^3/ul Neutrophils # 7.9 10^3/ul Lymphocytes # 2.0 10^3/ul Monocytes # 0.8 10^3/ul Eosinophils # 0.2 10^3/ul Basophils # 0.1 10^3/ul Nucleated Red Blood Cells # 0.0 10^3/ul Sodium Level 140 mmol/L Potassium Level 3.9 mmol/L Chloride Level 101 mmol/L Carbon Dioxide Level 29 mmol/L Anion Gap 10 Blood Urea Nitrogen 13 mg/dl Creatinine 0.91 mg/dl Est Glomerular Filtrat Rate mL/min > 60 mL/min Glucose Level 110 mg/dl Calcium Level 10.4 mg/dl Total Bilirubin 1.0 mg/dl Direct Bilirubin 0.00 mg/dl Indirect Bilirubin 1.0 mg/dl Aspartate Amino Transf (AST/SGOT) 19 IU/L Alanine Aminotransferase (ALT/SGPT) 24 IU/L Alkaline Phosphatase 74 IU/L Total Protein 8.4 g/dl Albumin 4.9 g/dl Globulin 3.50 g/dl Albumin/Globulin Ratio 1.40 Lipase 21 U/L Current Medications Medications Dose Sig/Savage Start Time Status Last (Trade) Ordered Route PRN Stop Time Admin Dose Reason Admin Sodium 1,000 ml @ Q1H STAT 10/27/18 DC 10/27/18 Chloride 1,000 mls/hr IV 20:30 20:52 10/27/18 21:29 Morphine 2 mg ONCE STAT 10/27/18 DC 10/27/18 Sulfate IV 20:30 20:54 (morphine) 10/27/18 20:32 Ondansetron 4 mg ONCE STAT 10/27/18 DC 10/27/18 HCl (Zofran IV 20:30 20:54 Inj) 10/27/18 20:32 Famotidine 20 mg ONCE STAT 10/27/18 DC (Pepcid) PO 20:30 10/27/18 20:32 Famotidine 20 mg ONCE STAT 10/27/18 DC 10/27/18 (Pepcid Iv) IV 20:58 21:04 10/27/18 21:03 Famotidine 20 mg STK-MED 10/27/18 DC (Pepcid Iv) ONCE .ROUTE 21:00 10/27/18 21:01 Ketorolac 30 mg ONCE STAT 10/27/18 DC 10/27/18 Tromethamine IV 21:27 21:33 (Toradol) 10/27/18 21:28 IV Flush 10 ml STK-MED 10/27/18 DC 10/27/18 (NS 10 ml) ONCE .ROUTE 21:51 22:02 10/27/18 21:52 Sodium 100 ml @ ud STK-MED 10/27/18 DC 10/27/18 Chloride ONCE .ROUTE 21:51 22:02 10/27/18 21:52 Iohexol 150 ml STK-MED 10/27/18 DC 10/27/18 (Omnipaque ONCE .ROUTE 21:51 22:02 300mg/ ml) 10/27/18 21:52 Procedures/MDM This patient presents with abdominal pain of unclear etiology. A CT scan was performed to evaluate for potential causes of the abdominal pain, however, neither the clinical exam nor the CT has identified an emergent etiology for the abdominal pain. Specifically, given the benign exam, the laboratory studies, and unremarkable CT, I have a very low suspicion for appendicitis, ischemic bowel, bowel perforation, or any other life threatening disease. I have discussed with the patient the level of uncertainty with undifferentiated abdominal pain and clearly explained the need to follow-up as noted on the discharge instructions, or return to the Emergency Department immediately if the pain worsens, develops fever, persistent and uncontrollable vomiting, or for any new symptoms or concerns. Patient advised to follow-up with his PMD and have referral to see GI specialist given his recurrent symptoms for further evaluation and work-up. ED course: CT abdomen and pelvis without acute finding Labs unremarkable, lipase within normal limits, LFTs within normal limits DISPOSITION PLAN: We discussed follow up with the patient's primary care doctor within 24 to 48 hours. Patient counseled regarding my diagnostic impression and care plan. Prior to discharge all questions answered. Pt agrees with treatment plan and understands strict return precautions. Precautionary instructions provided including instructions to return to the ER if not improving or for any worsening or changing symptoms or concerns. Disclaimer: Inadvertent spelling and grammatical errors are likely due to EHR/dictation software use and do not reflect on the overall quality of patient care. Also, please note that the electronic time recorded on this note does not necessarily reflect the actual time of the patient encounter. Departure Diagnosis: Primary Impression: Abdominal pain Condition: Stable Patient Instructions: Abdominal Pain Additional Instructions: Call your primary care doctor TOMORROW for an appointment during the next 2-3 days.See the doctor sooner or return here if your condition worsens before your appointment time. KRYSTAL HYDE PA-C Oct 27, 2018 20:55
[2018-10-27] MEDS ORDERED: FAMOTIDINE 20 MG INJ IV STA (20:58)
[2018-10-27] MEDS ORDERED: FAMOTIDINE 20 MG INJ ONE (21:00)
[2018-10-27] MEDS ORDERED: KETOROLAC 30 MG INJ IV STA (21:27)
[2018-10-27] MEDS ORDERED: SOD CHLORIDE 0.9% 100 ML ONE (21:51)
[2018-10-27] MEDS ORDERED: IOHEXOL 300MG/ML 150 ML BTL ONE (21:51)
[2018-10-27 23:20] VITALS: BP 90/54; PULSE 92; RESP 16
== END 2018-10-27 23:20 | disposition home or self-care (01) ==
LOC: FTE 19:45
DX: R10.11 Right upper quadrant pain (principal); R10.31 Right lower quadrant pain; R10.33 Periumbilical pain; F17.210 Nicotine dependence, cigarettes, uncomplicated; R11.10 Vomiting, unspecified
CPT/HCPCS: 36415; 74177; 80053; 83690; 85025; 96361; 96374; 96375; J1885; J2270; J2405; J7030; Q9967; Z7502; Z7610

== ENCOUNTER 2019-01-13 04:46 | Emergency (ER) | payer OTHER ==
[~2019-01-13] VITALS: Ht 165.1 cm; Wt 60.0 kg
[~2019-01-13 04:46] MED LIST changes: +DICY10CA40 PO; -FAMO-96 PO; +HYDR-4011 PO; -IBUP-1542 PO; -LEVO500T48 PO; -METR500T PO; -ONDA4TAB14 PO; -TRAM50TA2 PO
[2019-01-13 04:50] VITALS: Ht 165.1 cm; Wt 60.0 kg
[2019-01-13] MEDS ORDERED: KETOROLAC 15 MG INJ IV STA (04:50)
[2019-01-13] MEDS ORDERED: SOD CHLORIDE 0.9% 1,000 ML IV STA (04:50)
[2019-01-13] MEDS ORDERED: HALOPERIDOL 5 MG INJ IV ONE (05:00)
[2019-01-13] MEDS ORDERED: DIPHENHYDRAMINE 50 MG INJ IV ONE (05:00)
[2019-01-13 06:13] VITALS: BP 107/69; PULSE 98; RESP 20
== END 2019-01-13 06:14 | disposition home or self-care (01) ==
LOC: E/R 04:46
DX: R10.84 Generalized abdominal pain (principal); Z87.891 Personal history of nicotine dependence
CPT/HCPCS: 36415; 80053; 83690; 85025; 96374; 96375; J1200; J1630; J1885; J7030; Z7502